=== PATIENT | female | born 1975 | race Caucasian/White ===

== ENCOUNTER 2016-07-27 10:05 | Inpatient (IN) | payer OTHER ==
[~2016-07-27] VITALS: Ht 160 cm; Wt 92.7 kg
[2016-07-27] MEDS ORDERED: CYCL5TAB PO (10:54)
[2016-07-27] MEDS ORDERED: NVLGI/PEN SQ (10:54)
[2016-07-27] MEDS ORDERED: DICY20TA10 PO (10:54)
[2016-07-27] MEDS ORDERED: METO5TAB25 PO (10:54)
[2016-07-27] MEDS ORDERED: DOCU100C31 PO (10:54)
[2016-07-27] MEDS ORDERED: POTA20TA16 PO (10:54)
[2016-07-27] MEDS ORDERED: PANT40TA2 PO (10:54)
[2016-07-27] MEDS ORDERED: PRENTAB26 PO (10:54)
[2016-07-27] MEDS ORDERED: VENL37.593 PO (10:54)
[2016-07-27] MEDS ORDERED: FLUT0.15 NAE (10:54)
[2016-07-27] MEDS ORDERED: ASPI81TA28 PO (10:54)
[2016-07-27] MEDS ORDERED: PREG1CAP28 PO (10:54)
[2016-07-27] MEDS ORDERED: POLY335019 PO (10:54)
[2016-07-27] MEDS ORDERED: AMIO200T4 PO (10:54)
[2016-07-27] MEDS ORDERED: TRAM-10 PO (10:54)
[2016-07-27] MEDS ORDERED: LPT/40 PO (10:54)
[2016-07-27] MEDS ORDERED: FURO80TA63 PO (10:54)
[2016-07-27] MEDS ORDERED: VENL150C PO (10:54)
[2016-07-27] MEDS ORDERED: HEPA1INJ22 SQ (10:54)
[2016-07-27 11:16] LABS: ARTERIAL BLD GAS O2 SATURATION 94.9 % (90-95); ARTERIAL BLOOD GAS BASE EXCESS 11.2 mEq/L (-9-1.8); ARTERIAL BLOOD GAS HCO3 36 mmol/L (19-24); ARTERIAL BLOOD GAS PO2 94 mm/Hg (80-95); ARTERIAL BLOOD GAS pH 7.48 (7.35-7.45)
[2016-07-27 11:17] LABS: ALLEN TEST POS (POS); O2 ADMINISTRATION 3.5 L
--- NOTE | 2016-07-27 11:18 | DIAGNOSTIC IMAGING REPORT ---
CHEST ONE VIEW PORTABLE HISTORY: Left-sided chest pain. COMPARISON: None. FINDINGS: There are low lung volumes. The heart is mildly enlarged. There are poststernotomy changes. No pneumothorax. There is perihilar interstitial and vascular thickening suggestive of mild congestive change. There are patchy densities the left lung base and a possible trace left pleural effusion. IMPRESSION: 1. Cardiomegaly with mild congestive change. 2. Patchy densities at the left lung base with a possible trace left pleural effusion. This could represent atelectasis or pneumonia. Follow-up is recommended to ensure resolution. Electronically signed by: Juan Lincoln M.D. 07/27/2016 11:16 AM Dictated Date/Time: 07/27/2016 11:15 AM
[2016-07-27 11:30] LABS: BASO % 0.2 %; BASO ABS # 0.03 K/uL (0-0.2); EOS % 3.9 %; HEMATOCRIT 25.4 % (37-47); IG% 2.2 %; LYMPH % 13.9 %; LYMPH ABS # 1.95 K/uL (1.2-3.4); MEAN CELL VOLUME 96.2 fL (80-100); MEAN CORPUSCULAR HEMOGLOBIN 31.1 pg (25-34); MEAN CORPUSCULAR HGB CONC 32.3 g/dl (32-36); MEAN PLATELET VOLUME 9.9 fL (7.4-10.4); MONO % 8.7 %; NEUT % 71.1 %; PLATELET COUNT 405 K/uL (130-400); RED BLOOD COUNT 2.64 M/uL (4.2-5.4); WHITE BLOOD COUNT 14.04 K/uL (4.8-10.8)
[2016-07-27 11:44] LABS: INR 1.1 (0.9-1.1); PARTIAL THROMBOPLASTIN RATIO 1.2; PROTHROMBIN TIME (PATIENT) 11.5 SECONDS (9.0-12.0)
[2016-07-27 11:49] LABS: BUN/CREATININE RATIO 27.8 (10-20); CALCIUM 8.8 mg/dl (8.5-10.1); CREATININE 3.3 mg/dl (0.60-1.20); POTASSIUM 3.5 mmol/L (3.5-5.1)
[2016-07-27 11:58] LABS: COMPLETE YES; STOMATOCYTE 1+
--- NOTE | 2016-07-27 13:30 | ECHOCARDIOGRAM REPORT ---
*NOTICE TO RECEIVING DEMOCRAT AGENCY This information is strictly Confidential and protected under [place] law. [place] law prohibits you from making any further disclosure of this information unless further disclosure is expressly permitted by the written consent of the person to whom it pertains or is authorized by law. A general authorization for the release of medical or other information is not sufficient for this purpose. Hospital accepts no responsibility if the information is made available to any other person, INCLUDING THE PATIENT. Interpretation Summary * Name: MONE MCKEON Study Date: 07/27/2016 11:26 AM BP: 128/66 mmHg * Patient Location: .EDB HR: 70 * : 1975 (M/d/yyyy) Gender: Female Height: 62 in * Age: 40 yrs Ethnicity: CA Weight: 207 lb * Ordering Physician: Terrance Gonzalez * Performed By: Galen Isidro RCS * * Reason For Study: Eval for Pericardial Effusion \T\ LV Function * BSA: 1.9 m2 * The study was technically difficult. * The study was technically limited. * -- Conclusions -- * Ejection Fraction = 45-50%. * Septal motion is consistent with post-operative state. * Trace posterior loculated pericardial effusion with fibrous strands. * There are no echocardiographic indications of cardiac tamponade. Procedure Details * A two-dimensional transthoracic echocardiogram was performed. * A two-dimensional transthoracic echocardiogram, with color flow Doppler was performed. * A two-dimensional transthoracic echocardiogram with M-mode and Doppler was performed. * There were technical limitations due to patient'spoor positioning * A contrast injection of Definity was performed to improve assessment of LV function. * Contrast was injected into an intravenous site in the left arm. * One vial of Definity ultrasound contrast was diluted in normal saline to a total volume of 10 ml. A total of '2' ml of solution was administered during imaging. * Lot # [id number] of Definity utilized for procedure. * Expiration date 1APR18. * The attending nurse who injected the contrast agent was Galen Avendano RN. Left Ventricle * There is no thrombus. * Ejection Fraction = 45-50%. * Septal motion is consistent with post-operative state. Right Ventricle * The right ventricle is not well visualized. * Grossly normal RV size in limited views. * The right ventricular systolic function is mild to moderately reduced. Atria * The left atrium is mildly dilated. * Right atrial size is normal. Mitral Valve * The mitral valve is not well visualized. * There is no mitral valve stenosis. * Significant mitral regurgitation is absent. Tricuspid Valve * The tricuspid valve is not well visualized. Aortic Valve * The aortic valve is not well visualized. Pulmonic Valve * The pulmonic valve is not well visualized. Great Vessels * The aortic root is normal size. Pericardium/Pleural * Trace posterior loculated pericardial effusion with fibrous strands. * There are no echocardiographic indications of cardiac tamponade. Left Ventricular Diastolic Function * Diastolic function was not assessed. MMode 2D Measurements and Calculations IVSd 1.1 cm IVSs 1.4 cm LVIDd 4.8 cm LVIDs 3.8 cm LVPWd 1.1 cm LVPWs 1.4 cm IVS/LVPW 1.0 FS 21.4 % EDV(Teich) 106.4 ml ESV(Teich) 60.2 ml EF(Teich) 43.4 % EDV(cubed) 109.1 ml ESV(cubed) 53.0 ml EF(cubed) 51.5 % % IVS thick 29.3 % % LVPW thick 31.6 % LV mass(C)d 189.3 grams LV mass(C)dI 97.6 grams/m\S\2 LV mass(C)s 194.6 grams LV mass(C)sI 100.3 grams/m\S\2 CO(Teich) 3.2 l/min CI(Teich) 1.6 l/min/m\S\2 SV(Teich) 46.2 ml SI(Teich) 23.8 ml/m\S\2 CO(cubed) 3.9 l/min CI(cubed) 2.0 l/min/m\S\2 SV(cubed) 56.1 ml SI(cubed) 28.9 ml/m\S\2 LVAd ap4 35.7 cm\S\2 LVLd ap4 8.5 cm EDV(MOD-sp4) 81.5 ml EDV(sp4-el) 82.3 ml LVAs ap4 24.2 cm\S\2 LVLs ap4 7.0 cm ESV(MOD-sp4) 35.5 ml ESV(sp4-el) 36.3 ml EF(MOD-sp4) 56.5 % EF(sp4-el) 55.9 % LVAd ap2 35.5 cm\S\2 LVLd ap2 8.5 cm EDV(MOD-sp2) 94.7 ml EDV(sp2-el) 95.4 ml LVAs ap2 24.1 cm\S\2 LVLs ap2 7.1 cm ESV(MOD-sp2) 86.6 ml ESV(sp2-el) 84.3 ml EF(MOD-sp2) 8.6 % EF(sp2-el) 11.6 % LVLd %diff 8.7 % EDV(MOD-bp) 91.8 ml LVLs %diff 14.2 % ESV(MOD-bp) 58.8 ml EF(MOD-bp) 36.0 % CO(MOD-sp4) 3.2 l/min CI(MOD-sp4) 1.6 l/min/m\S\2 SV(MOD-sp4) 46.1 ml SI(MOD-sp4) 23.7 ml/m\S\2 CO(MOD-sp2) 0.56 l/min CI(MOD-sp2) 0.29 l/min/m\S\2 SV(MOD-sp2) 8.1 ml SI(MOD-sp2) 4.2 ml/m\S\2 CO(MOD-bp) 2.3 l/min CI(MOD-bp) 1.2 l/min/m\S\2 SV(MOD-bp) 33.0 ml SI(MOD-bp) 17.0 ml/m\S\2 CO(sp4-el) 3.2 l/min CI(sp4-el) 1.6 l/min/m\S\2 SV(sp4-el) 46.0 ml SI(sp4-el) 23.7 ml/m\S\2 CO(sp2-el) 0.77 l/min CI(sp2-el) 0.39 l/min/m\S\2 SV(sp2-el) 11.1 ml SI(sp2-el) 5.7 ml/m\S\2 Doppler Measurements and Calculations TR max heather 240.3 cm/sec
[2016-07-27] MEDS ORDERED: NITROGLYCERIN 0.4 MG SL PER TAB CHARGE SL PRN (14:45)
[2016-07-27] MEDS ORDERED: ONDANSETRON INJ 2 MG/ML 2 ML VIAL IV PRN (14:45)
[2016-07-27] MEDS ORDERED: OMEP20CA9 PO (14:47)
[2016-07-27] MEDS ORDERED: FRRS300 PO (14:47)
[2016-07-27] MEDS ORDERED: INSDGIPEN SC (14:56)
[2016-07-27] MEDS ORDERED: CYCLOBENZAPRINE HCL 10 MG TAB PO PRN (15:00)
[2016-07-27] MEDS ORDERED: GLUCOSE 10 TABS/TUBE PO PRN (15:00)
[2016-07-27] MEDS ORDERED: GLUCOSE 40% GEL 15 GM TUBE PO PRN (15:00)
[2016-07-27] MEDS ORDERED: DEXTROSE 50% 50 ML SYR IV PRN (15:00)
[2016-07-27] MEDS ORDERED: GLUCAGON FOR INJ 1 MG VIAL SQ PRN (15:00)
--- NOTE | 2016-07-27 15:04 | DIAGNOSTIC IMAGING REPORT ---
BILATERAL LOWER EXTREMITY VENOUS DOPPLER HISTORY: Pain. Edema. eval for dv COMPARISON STUDY: None. FINDINGS: There is normal compressibility, flow, and augmentation within the bilateral lower extremity deep venous systems. Small focus of superficial thrombophlebitis left greater saphenous vein. IMPRESSION: 1. Study is negative for deep venous thrombosis. 2. Small focus of superficial thrombophlebitis left greater saphenous vein. Electronically signed by: Shamar Guardado M.D. 07/27/2016 3:02 PM Dictated Date/Time: 07/27/2016 3:01 PM
[2016-07-27] MEDS ORDERED: VANCOMYCIN CONSULT ACTIVE PRN (15:21)
--- NOTE | 2016-07-27 15:21 | History and Physical ---
History & Physical Date & Time of Service: July 27, 2016 at 14:57 Chief Complaint: Chest Pain Primary Care Physician: Monica Rascon PA-C History of Present Illness Source: patient, clinic records, hospital records, other ([facility]) Patient seen and examined. 40 year old female with complicated PMHx of CAD, DM1 , HTN, HLD, nocturnal hypoxia, CKD stage 3, and recent CABG x 4 on 07/16 presents to the ED from [facility] complaining of chest pain. Patient had a CABG x 4 on 07/16 at [facility] and was discharged last evening to [facility]. Hospital course had been complicated by DWAYNE. Patient reports that she has been having off and on left sided chest pain with radiation around the back to the left shoulder blade for several weeks. She states she had this pain prior to the CABG and has continued since. She reports it can last anywhere from 20 minutes to several hours and then resolves spontaneously. She rates the pain as a 7/10. She reports she had been having this pain while in [facility] but did not tell anyone. She had this pain again today while at [facility] and was referred to the ED for further evaluation. She denies fevers, chills, URI symptoms, SOB, palpitations, nausea, vomiting, diarrhea, dysuria, calf pain and edema. In the ED patient was hypoxic but otherwise VS were stable, a STAT Echo was completed, troponin was 0.6, WBC count was 14K, Hgb is 8.2. She is currently resting comfortably pain free. Differential diagnosis include PE d/t patient's DWAYNE on CKD a CTA could not be completed. Ddimer and doppler US were pending at time of admission. Case was discussed with [facility] by ED physician and per ED physician [facility] was not willing to accept the patient. She will be admitted for further workup and treatment. Past Medical/Surgical History Medical Problems: (1) Anemia Status: Chronic (2) CAD (coronary artery disease) Status: Chronic (3) CKD (chronic kidney disease), stage III Status: Chronic (4) HLD (hyperlipidemia) Status: Chronic (5) HTN (hypertension) Status: Chronic (6) IDDM (insulin dependent diabetes mellitus) Status: Chronic (7) Neuropathy Status: Chronic (8) Nocturnal hypoxia Status: Chronic Surgical Problems: (1) H/O eye surgery Status: Chronic (2) H/O: Status: Chronic (3) History of esophagogastroduodenoscopy (EGD) Status: Chronic (4) History of quadruple bypass Status: Resolved (5) Hx of tonsillectomy Status: Chronic Family History Diabetes mellitus FH: heart disease Hypertension Stroke Social History Smoking Status: Never Smoker Alcohol Use: none Housing status: lives with family Allergies Coded Allergies: No Known Allergies (Unverified , 07/27/16) Home Medications Scheduled Amiodarone Hcl (Cordarone), 200 MG PO BID Aspirin (Aspirin Ec), 162 MG PO DAILY Atorvastatin (Lipitor), 80 MG PO QPM Cyclobenzaprine Hcl (Flexeril), 5 MG PO BID Dicyclomine Hcl (Dicyclomine Hcl), 20 MG PO TID Docusate Sodium (Docusate Sodium), 100 MG PO BID Ferrous Sulfate (Ferrous Sulfate), 325 MG PO BID Fluticasone Propionate (Nasal) (Flonase Allergy Relief), 1 SPRAY PAVEL DAILY Furosemide (Lasix), 80 MG PO DAILY Heparin Sodium (Porcine) (Heparin Sodium), 5,000 UNIT SQ Q8 Insulin Aspart (Novolog Flexpen), 1 UNIT SQ ACHS Insulin Glargine (Lantus Solostar), 15 UNITS SC BID Metolazone (Zaroxolyn), 5 MG PO DAILY Multivit/Min/Iron/Fol Ac/Pren ( Vitamin), 1 TAB PO DAILY Omeprazole (Prilosec), 20 MG PO DAILY Polyethylene Glycol 3350 (Miralax), 17 GM PO DAILY Potassium Ext Rel (Klor-Con), 10 MEQ PO QAM Pregabalin (Lyrica), 150 MG PO BID Venlafaxine Hcl (Venlafaxine Extended Rel), 37.5 MG PO QPM Venlafaxine Hcl (Effexor Xr), 150 MG PO QPM Scheduled PRN Tramadol (Ultram), 50 MG PO Q4H PRN for Pain Review of Systems Constitutional: No chills, No fever Eyes: No worsening of vision ENT: No nasal symptoms Respiratory: No cough, No shortness of breath Cardiovascular: + chest pain, No edema, No palpitations Abdomen: No constipation, No diarrhea, No nausea, No pain, No vomiting Musculoskeletal: No calf pain, No swelling Genitourinary - Female: No dysuria Neurologic: No numbness/tingling, No vertigo Psychiatric: No anxiety Hematologic / Lymphatic: No abnormal bleeding/bruising, No clotting problems Integumentary: No itch, No rash Allergic / Immunologic: No environmental allergies Physical Exam Vital Signs Date Time Temp Pulse Resp B/P Pulse Ox O2 Delivery O2 Flow Rate FiO2 07/27/16 14:34 83 16 108/66 07/27/16 14:07 72 16 99/67 97 Nasal Cannula 4.0 07/27/16 13:12 67 16 123/88 97 Nasal Cannula 4.0 07/27/16 12:04 70 16 80/47 97 Nasal Cannula 4.0 07/27/16 10:17 Nasal Cannula 4.0 07/27/16 10:16 36.7 70 18 128/66 87 Room Air 2.0 General Appearance: + pertinent finding (WD/WN 40 year old female lying in bed in NAD ) Head: normocephalic, atraumatic Eyes: PERRL, EOMI, sclerae normal ENT: hearing grossly normal, pharynx normal Neck: supple, no JVD Respiratory/Chest: lungs clear, normal breath sounds, no respiratory distress, no accessory muscle use, + pertinent finding (chest tender to palpation, well healing sternal incision s/p CABG ) Cardiovascular: regular rate, rhythm, no edema, no gallop, no JVD, no murmur, normal peripheral pulses Abdomen/GI: normal bowel sounds, non tender, soft Back: normal inspection, no muscle spasm Extremities/Musculoskelatal: no calf tenderness, normal capillary refill, no pedal edema Neurologic/Psych: alert, oriented x 3, + pertinent finding (no focal deficits noted on gross exam ) Skin: normal color, warm/dry, no rash Lymphatic: no adenopathy Diagnostics Laboratory Results Results Past 24 Hours Test 07/27/16 00:00 07/27/16 11:15 07/27/16 14:37 Range/Units Arterial Blood pH 7.48 7.35-7.45 Arterial Blood Partial Pressure CO2 49 35-46 mmHg Arterial Blood Partial Pressure O2 94 80-95 mm/Hg Arterial Blood HCO3 36 19-24 mmol/L Arterial Blood Oxygen Saturation 94.9 90-95 % Arterial Blood Base Excess 11.2 -9-1.8 mEq/L Arterial Blood Gas Delivery 3.5 L Joesph Test POS POS White Blood Count 14.04 4.8-10.8 K/uL Red Blood Count 2.64 4.2-5.4 M/uL Hemoglobin 8.2 12.0-16.0 g/dL Hematocrit 25.4 37-47 % Mean Corpuscular Volume 96.2 80-100 fL Mean Corpuscular Hemoglobin 31.1 25-34 pg Mean Corpuscular Hemoglobin Concent 32.3 32-36 g/dl Platelet Count 405 130-400 K/uL Mean Platelet Volume 9.9 7.4-10.4 fL Neutrophils (%) (Auto) 71.1 % Lymphocytes (%) (Auto) 13.9 % Monocytes (%) (Auto) 8.7 % Eosinophils (%) (Auto) 3.9 % Basophils (%) (Auto) 0.2 % Neutrophils # (Auto) 9.98 1.4-6.5 K/uL Lymphocytes # (Auto) 1.95 1.2-3.4 K/uL Monocytes # (Auto) 1.22 0.11-0.59 K/uL Eosinophils # (Auto) 0.55 0-0.5 K/uL Basophils # (Auto) 0.03 0-0.2 K/uL RDW Standard Deviation 57.6 36.4-46.3 fL RDW Coefficient of Variation 16.8 11.5-14.5 % Immature Granulocyte % (Auto) 2.2 % Immature Granulocyte # (Auto) 0.31 0.00-0.02 K/uL Stomatocytes 1+ Erythrocyte Sedimentation Rate 51 0-21 mm/hr Prothrombin Time 11.5 9.0-12.0 SECONDS Prothromb Time International Ratio 1.1 0.9-1.1 Activated Partial Thromboplast Time 30.4 21.0-31.0 SECONDS Partial Thromboplastin Ratio 1.2 Sodium Level 133 136-145 mmol/L Potassium Level 3.5 3.5-5.1 mmol/L Chloride Level 88 98-107 mmol/L Carbon Dioxide Level 36 21-32 mmol/L Anion Gap 9.0 3-11 mmol/L Blood Urea Nitrogen 92 7-18 mg/dl Creatinine 3.30 0.60-1.20 mg/dl Est Creatinine Clear Calc Drug Dose 24.4 ml/min Estimated GFR () 19.1 Estimated GFR (Non- 16.5 BUN/Creatinine Ratio 27.8 10-20 Random Glucose 185 70-99 mg/dl Calcium Level 8.8 8.5-10.1 mg/dl Total Bilirubin 0.4 0.2-1 mg/dl Direct Bilirubin 0.1 0-0.2 mg/dl Aspartate Amino Transf (AST/SGOT) 15 15-37 U/L Alanine Aminotransferase (ALT/SGPT) 14 12-78 U/L Alkaline Phosphatase 276 45-117 U/L Total Creatine Kinase 48 26-192 U/L Creatine Kinase MB 0.5 0.5-3.6 ng/ml Creatine Kinase MB Ratio 1.0 0-3.0 Troponin I 0.604 0-0.045 ng/ml Pro-B-Type Natriuretic Peptide 7498 0-450 pg/ml Total Protein 7.2 6.4-8.2 gm/dl Albumin 3.1 3.4-5.0 gm/dl Diagnostic Radiology CXR Per radiologist read: IMPRESSION: 1. Cardiomegaly with mild congestive change. 2. Patchy densities at the left lung base with a possible trace left pleural effusion. This could represent atelectasis or pneumonia. Follow-up is recommended to ensure resolution. EKG NSR 70 BPM, Incomplete LBBB, QTc 464 Impression Assessment and Plan 40 year old female presents to the ED complaining of chest pain, she had a CABG on 07/16 reports this chest pain has been going on for the last month or so CHEST PAIN, ELEVATED TROPONIN, H/O CAD S/P RECENT CABG -Admit to tele -Troponin 0.6, STAT echo completed and without significant change from postop -serial Cameron, EKGs -Cardiology consult placed -Workup for PE and other noncardiac etiologies as outlined below -ED spoke with [facility] cardiology and they did not believe transfer was indicated at this time, if workup for noncardiac causes is negative patient may need to be transferred, defer to attending physician -Continue aspirin, statin, amiodarone HYPOXIA -? cause does have chronic nocturnal hypoxia -Differential diagnosis to include, PE, pneumonia, chronic hypoxia d/t cardiac disease, and other etiologies -supplemental oxygen as needed -VQ scan to r/o PE -empirically treat for pneumonia as outlined below ELEVATED DDIMER -can not have CTA d/t renal function -Check VQ scan, doppler US BLLE DWAYNE on CKD STAGE 3 -Crea 3.3, baseline near 1.5 -likely secondary to aggressive diuretic use, was evaluated by nephrology in [place] -hold diuretics -follow PRP POSSIBLE PNEUMONIA -CXR with possible pneumonia, WBC count 14K -D/T recent hospitalization will cover for health care associated pneumonia -Empirically treat with Vancomycin, Zosyn - pharmacy consulted for dosing -follow WBC count DM1 -Check A1c -SSI coverage -Lantus 10units BID while npo SYSTOLIC CHF -LVEF 40-45% -hold diuretics for DWAYNE -monitor volume status closely ANEMIA -Hgb 8.2, today -continue iron supplementation -Type and cross 2 units PRBC PERIPHERAL NEUROPATHY -continue Lyrica HLD -continue Statin GERD -continue PPI DEPRESSION -continue Effexor DVT PROPHYLAXIS: Sq heparin CODE STATUS: FULL CODE DISPO:In my clinical judgment this beneficiary meets acute admission criteria, established by [facility], that includes being hospitalized through two midnights. Patient seen in collaboration with Dr. Nails ADDENDUM: This is a 40 year old female with a recent CABG done on 07/16 presents to the ER after being discharged from [place] on July 26 for left sided chest pain. She states the pain is on the L chest wall, radiating to the L and around her back. No shortness of breath associated with chest pain echo performed, EF looks to be ~ 50% trend enzymes, though elevated due to recent CABG hold Lasix + Zaroxolyn due to acute kidney injury Monitor H/H cardiology consultation may need Imdur if this is cardiac related? possible transfer back to [place]? VTE Prophylaxis VTE Risk Assessment Done? Y/N: Yes Risk Level: Moderate
[2016-07-27] MEDS ORDERED: PIPERACILL/TAZOBAC CONSULT ACTIVE PRN (15:30)
[2016-07-27] MEDS ORDERED: PIPERACILLIN/TAZOBACTAM 4.5 GM/100ML D5W IV STA (16:14)
--- NOTE | 2016-07-27 16:20 | Pharmacy Progress Note ---
Pharmacy Antibiotic Consult Date of Service: July 27, 2016. Pharmacy Dosing Scope Pharmacy is consulted to initiate vancomycin IV dosing therapy, order appropriate labs and adjust drug dose/frequency. Subjective The patient is a 40 year old female admitted on 07/27/2016 with a hospital acquired pneumonia. She was previously at [facility] in [place] for a quadruple bypass. Her stay there was complicated by an DWAYNE. She was discharged to [facility] yesterday. She complained of a pain in upper chest/shoulder area that she has had for some time including her time at [place].Chest x-ray showed patchy densities at the left lung base with possible trace effusions. Objective Height (Feet): 5 Height (Inches): 3.00 Weight (Kilograms): 94.000 Lab Results (24hrs): Test 07/27/16 00:00 07/27/16 11:15 Arterial Blood pH 7.48 (7.35-7.45) Arterial Blood Partial Pressure CO2 49 mmHg (35-46) Arterial Blood Partial Pressure O2 94 mm/Hg (80-95) Arterial Blood HCO3 36 mmol/L (19-24) Arterial Blood Oxygen Saturation 94.9 % (90-95) Arterial Blood Base Excess 11.2 mEq/L (-9-1.8) Arterial Blood Gas Delivery 3.5 L Joesph Test POS (POS) White Blood Count 14.04 K/uL (4.8-10.8) Red Blood Count 2.64 M/uL (4.2-5.4) Hemoglobin 8.2 g/dL (12.0-16.0) Hematocrit 25.4 % (37-47) Mean Corpuscular Volume 96.2 fL (80-100) Mean Corpuscular Hemoglobin 31.1 pg (25-34) Mean Corpuscular Hemoglobin Concent 32.3 g/dl (32-36) Platelet Count 405 K/uL (130-400) Mean Platelet Volume 9.9 fL (7.4-10.4) Neutrophils (%) (Auto) 71.1 % Lymphocytes (%) (Auto) 13.9 % Monocytes (%) (Auto) 8.7 % Eosinophils (%) (Auto) 3.9 % Basophils (%) (Auto) 0.2 % Neutrophils # (Auto) 9.98 K/uL (1.4-6.5) Lymphocytes # (Auto) 1.95 K/uL (1.2-3.4) Monocytes # (Auto) 1.22 K/uL (0.11-0.59) Eosinophils # (Auto) 0.55 K/uL (0-0.5) Basophils # (Auto) 0.03 K/uL (0-0.2) RDW Standard Deviation 57.6 fL (36.4-46.3) RDW Coefficient of Variation 16.8 % (11.5-14.5) Immature Granulocyte % (Auto) 2.2 % Immature Granulocyte # (Auto) 0.31 K/uL (0.00-0.02) Stomatocytes 1+ Erythrocyte Sedimentation Rate 51 mm/hr (0-21) Prothrombin Time 11.5 SECONDS (9.0-12.0) Prothromb Time International Ratio 1.1 (0.9-1.1) Activated Partial Thromboplast Time 30.4 SECONDS (21.0-31.0) Partial Thromboplastin Ratio 1.2 D-Dimer 3800 ug/L FEU (0-500) Sodium Level 133 mmol/L (136-145) Potassium Level 3.5 mmol/L (3.5-5.1) Chloride Level 88 mmol/L (98-107) Carbon Dioxide Level 36 mmol/L (21-32) Anion Gap 9.0 mmol/L (3-11) Blood Urea Nitrogen 92 mg/dl (7-18) Creatinine 3.30 mg/dl (0.60-1.20) Est Creatinine Clear Calc Drug Dose 24.4 ml/min Estimated GFR () 19.1 Estimated GFR (Non- 16.5 BUN/Creatinine Ratio 27.8 (10-20) Random Glucose 185 mg/dl (70-99) Calcium Level 8.8 mg/dl (8.5-10.1) Total Bilirubin 0.4 mg/dl (0.2-1) Direct Bilirubin 0.1 mg/dl (0-0.2) Aspartate Amino Transf (AST/SGOT) 15 U/L (15-37) Alanine Aminotransferase (ALT/SGPT) 14 U/L (12-78) Alkaline Phosphatase 276 U/L (45-117) Total Creatine Kinase 48 U/L (26-192) Creatine Kinase MB 0.5 ng/ml (0.5-3.6) Creatine Kinase MB Ratio 1.0 (0-3.0) Troponin I 0.604 ng/ml (0-0.045) Pro-B-Type Natriuretic Peptide 7498 pg/ml (0-450) Total Protein 7.2 gm/dl (6.4-8.2) Albumin 3.1 gm/dl (3.4-5.0) Assessment & Plan Loading dose: vancomycin 1900 mg IV X 1 dose then: Random level in the morning of 07/27/2016 (patient currently has an acute kidney injury with baseline serum creatinine around 1.5 mg/dL) Goal peak level estimate: between 35 - 40 mcg/mL. Goal trough level estimate: between 15 - 20 mcg/mL (indication: pneumonia). Pharmacy will continue to follow and will adjust dose/frequency as necessary. Thank you
--- NOTE | 2016-07-27 16:41 | DIAGNOSTIC IMAGING REPORT ---
NUCLEAR MEDICINE VENTILATION AND PERFUSION STUDY CLINICAL HISTORY: Hypoxia, left-sided chest pain. Elevated d-dimer. COMPARISON STUDY: Chest x-ray dated 07/27/2016 FINDINGS: The patient was ventilated utilizing 30.8 mCi of technetium 99m DTPA aerosol. The patient was perfused utilizing 5.5 mCi of technetium 99m MAA. There is moderate central deposition of the aerosol, suggesting airway disease. There are no significant VQ mismatches. There is globally decreased activity within the left lung. This is likely secondary to attenuation from the patient's cardiomegaly. This examination is of low probability for acute pulmonary embolism. IMPRESSION: Low probability of acute pulmonary embolism. Electronically signed by: Ady Shirley M.D. 07/27/2016 4:40 PM Dictated Date/Time: 07/27/2016 4:37 PM
--- NOTE | 2016-07-27 17:45 | EMERGENCY ROOM VISIT NOTE ---
History Report prepared by Markus: Rosie Elias Under the Supervision of: Dr. Terrance Gonzalez M.D. First contact with patient: 10:16 Chief Complaint: CHEST PAIN Stated Complaint: CHEST PAIN History of Present Illness The patient is a 40 year old female who presents to the Emergency Room with complaints of constant left sided chest pain beginning 1 week ago. The patient states that she had quadruple bypass surgery on 07/16 after having symptoms of shortness of breath and tiredness. She reports that she had low hemoglobin and a catheterization that revealed heart disease.before having her surgery and has been staying at [facility] in [place] since then. She notes that she was transferred to [facility] last night. The patient reports that she did have chest pain while she was at [facility] and is unsure of whether or not she told the staff there. She complains of shortness of breath, worsened back throbbing that she has had for months, and trouble getting up when she is laying down. She denies any radiation of the pain, arm pain, and leg swelling. The patient reports that she is on 2L of oxygen at [facility] and notes that she has been on oxygen for a few months. The patient is not able to describe what the chest pain feels like and notes that her chest pain is completely separate from the back pain that she has been having for months. EMS reports that the patient's O2 saturation was 73 on room air. Source of History: patient Onset: 1 week ago Position: chest (left) Quality: other (unable to assess) Timing: constant Modifying Factors (Relieving): other (none) Associated Symptoms: + SOB, + back pain Note: She complains of trouble getting up when she is laying down. She denies any radiation of the pain, arm pain, and leg swelling. Review of Systems See HPI for pertinent positives & negatives. A total of 10 systems reviewed and were otherwise negative. Past Medical & Surgical Medical Problems: (1) Anemia (2) CAD (coronary artery disease) (3) Chest pain (4) CKD (chronic kidney disease), stage III (5) HLD (hyperlipidemia) (6) HTN (hypertension) (7) IDDM (insulin dependent diabetes mellitus) (8) Neuropathy (9) Nocturnal hypoxia Surgical Problems: (1) H/O eye surgery (2) H/O: (3) History of esophagogastroduodenoscopy (EGD) (4) History of quadruple bypass (5) Hx of tonsillectomy Family History No pertinent family history stated. Social History Marital Status: Housing Status: lives with significant other Occupation Status: disabled Current/Historical Medications Scheduled Amiodarone Hcl (Cordarone), 200 MG PO BID Aspirin (Aspirin Ec), 162 MG PO DAILY Atorvastatin (Lipitor), 80 MG PO QPM Cyclobenzaprine Hcl (Flexeril), 5 MG PO BID Dicyclomine Hcl (Dicyclomine Hcl), 20 MG PO TID Docusate Sodium (Docusate Sodium), 100 MG PO BID Ferrous Sulfate (Ferrous Sulfate), 325 MG PO BID Fluticasone Propionate (Nasal) (Flonase Allergy Relief), 1 SPRAY PAVEL DAILY Furosemide (Lasix), 80 MG PO DAILY Heparin Sodium (Porcine) (Heparin Sodium), 5,000 UNIT SQ Q8 Insulin Aspart (Novolog Flexpen), 1 UNIT SQ ACHS Insulin Glargine (Lantus Solostar), 15 UNITS SC BID Metolazone (Zaroxolyn), 5 MG PO DAILY Multivit/Min/Iron/Fol Ac/Pren ( Vitamin), 1 TAB PO DAILY Omeprazole (Prilosec), 20 MG PO DAILY Polyethylene Glycol 3350 (Miralax), 17 GM PO DAILY Potassium Ext Rel (Klor-Con), 10 MEQ PO QAM Pregabalin (Lyrica), 150 MG PO BID Venlafaxine Hcl (Venlafaxine Extended Rel), 37.5 MG PO QPM Venlafaxine Hcl (Effexor Xr), 150 MG PO QPM Scheduled PRN Tramadol (Ultram), 50 MG PO Q4H PRN for Pain Allergies Coded Allergies: No Known Allergies (Unverified , 07/27/16) Physical Exam Vital Signs Date Time Temp Pulse Resp B/P Pulse Ox O2 Delivery O2 Flow Rate FiO2 07/27/16 17:02 67 18 121/89 07/27/16 14:34 83 16 108/66 07/27/16 14:07 72 16 99/67 97 Nasal Cannula 4.0 07/27/16 13:12 67 16 123/88 97 Nasal Cannula 4.0 07/27/16 12:04 70 16 80/47 97 Nasal Cannula 4.0 07/27/16 10:17 Nasal Cannula 4.0 07/27/16 10:16 36.7 70 18 128/66 87 Room Air 2.0 Physical Exam Constitutional: Vital signs reviewed. O2 saturations are in the 70s on room air. Eyes: Pupils are equal round reactive to light. Conjunctiva are noninjected. ENT: Pharynx is clear without erythema or exudate. Mucous membranes are moist. Neck supple without meningeal signs. Respiratory: Clear to auscultation bilaterally. Breath sounds are equal bilaterally. Cardiovascular: Regular rate and rhythm. No rubs or gallops. GI: Soft, nondistended and nontender. Bowel sounds are present. Musculoskeletal: No peripheral edema. No lower extremity tenderness. Mid- sternotomy scar with mild erythema, no discharge. Integumentary: No cyanosis. Wound patch over the left lower leg without any surrounding cellulitis. Neurological: The patient is awake and alert. No focal deficits. Psychiatric: Normal affect. Medical Decision & Procedures ER Provider Diagnostic Interpretation: X-ray results as stated below per interpretation by me and the radiologist: CHEST ONE VIEW PORTABLE FINDINGS: There are low lung volumes. The heart is mildly enlarged. There are poststernotomy changes. No pneumothorax. There is perihilar interstitial and vascular thickening suggestive of mild congestive change. There are patchy densities the left lung base and a possible trace left pleural effusion. IMPRESSION: 1. Cardiomegaly with mild congestive change. 2. Patchy densities at the left lung base with a possible trace left pleural effusion. This could represent atelectasis or pneumonia. Follow-up is recommended to ensure resolution. Electronically signed by: Juan Lincoln M.D. 07/27/2016 11:16 AM Dictated Date/Time: 07/27/2016 11:15 AM BILATERAL LOWER EXTREMITY VENOUS DOPPLER HISTORY: Pain. Edema. eval for dv COMPARISON STUDY: None. FINDINGS: There is normal compressibility, flow, and augmentation within the bilateral lower extremity deep venous systems. Small focus of superficial thrombophlebitis left greater saphenous vein. IMPRESSION: 1. Study is negative for deep venous thrombosis. 2. Small focus of superficial thrombophlebitis left greater saphenous vein. Electronically signed by: Shamar Guardado M.D. 07/27/2016 3:02 PM Laboratory Results 07/27/16 11:15 Red Blood Count 2.64, Mean Corpuscular Volume 96.2, Mean Corpuscular Hemoglobin 31.1, Mean Corpuscular Hemoglobin Concent 32.3, Mean Platelet Volume 9.9, Neutrophils (%) (Auto) 71.1, Lymphocytes (%) (Auto) 13.9, Monocytes (%) (Auto) 8.7, Eosinophils (%) (Auto) 3.9, Basophils (%) (Auto) 0.2, Neutrophils # (Auto) 9.98, Lymphocytes # (Auto) 1.95, Monocytes # (Auto) 1.22, Eosinophils # (Auto) 0.55, Basophils # (Auto) 0.03 07/27/16 11:15 Test 07/27/16 00:00 07/27/16 11:15 07/27/16 17:15 07/27/16 17:20 Arterial Blood pH 7.48 (7.35-7.45) Arterial Blood Partial Pressure CO2 49 mmHg (35-46) Arterial Blood Partial Pressure O2 94 mm/Hg (80-95) Arterial Blood HCO3 36 mmol/L (19-24) Arterial Blood Oxygen Saturation 94.9 % (90-95) Arterial Blood Base Excess 11.2 mEq/L (-9-1.8) Arterial Blood Gas Delivery 3.5 L Joesph Test POS (POS) White Blood Count 14.04 K/uL (4.8-10.8) Red Blood Count 2.64 M/uL (4.2-5.4) Hemoglobin 8.2 g/dL (12.0-16.0) Hematocrit 25.4 % (37-47) Mean Corpuscular Volume 96.2 fL (80-100) Mean Corpuscular Hemoglobin 31.1 pg (25-34) Mean Corpuscular Hemoglobin Concent 32.3 g/dl (32-36) Platelet Count 405 K/uL (130-400) Mean Platelet Volume 9.9 fL (7.4-10.4) Neutrophils (%) (Auto) 71.1 % Lymphocytes (%) (Auto) 13.9 % Monocytes (%) (Auto) 8.7 % Eosinophils (%) (Auto) 3.9 % Basophils (%) (Auto) 0.2 % Neutrophils # (Auto) 9.98 K/uL (1.4-6.5) Lymphocytes # (Auto) 1.95 K/uL (1.2-3.4) Monocytes # (Auto) 1.22 K/uL (0.11-0.59) Eosinophils # (Auto) 0.55 K/uL (0-0.5) Basophils # (Auto) 0.03 K/uL (0-0.2) RDW Standard Deviation 57.6 fL (36.4-46.3) RDW Coefficient of Variation 16.8 % (11.5-14.5) Immature Granulocyte % (Auto) 2.2 % Immature Granulocyte # (Auto) 0.31 K/uL (0.00-0.02) Stomatocytes 1+ Erythrocyte Sedimentation Rate 51 mm/hr (0-21) Prothrombin Time 11.5 SECONDS (9.0-12.0) Prothromb Time International Ratio 1.1 (0.9-1.1) Activated Partial Thromboplast Time 30.4 SECONDS (21.0-31.0) Partial Thromboplastin Ratio 1.2 D-Dimer 3800 ug/L FEU (0-500) Anion Gap 9.0 mmol/L (3-11) Est Creatinine Clear Calc Drug Dose 24.4 ml/min Estimated GFR () 19.1 Estimated GFR (Non- 16.5 BUN/Creatinine Ratio 27.8 (10-20) Calcium Level 8.8 mg/dl (8.5-10.1) Total Bilirubin 0.4 mg/dl (0.2-1) Direct Bilirubin 0.1 mg/dl (0-0.2) Aspartate Amino Transf (AST/SGOT) 15 U/L (15-37) Alanine Aminotransferase (ALT/SGPT) 14 U/L (12-78) Alkaline Phosphatase 276 U/L (45-117) Pro-B-Type Natriuretic Peptide 7498 pg/ml (0-450) Total Protein 7.2 gm/dl (6.4-8.2) Albumin 3.1 gm/dl (3.4-5.0) Creatine Kinase MB Ratio (0-3.0) Laboratory results as reviewed by me. ECG Indication: chest pain Rate (beats per minute): 70 Rhythm: normal sinus Findings: T-wave inversion (1 and AVL), prolonged QT, other ([place] depression in leads 1 and 2, no ST elevation) ED Course 1018: The patient was evaluated in room B2. A complete history and physical exam was performed. 1053: We got records from the [facility] and the patients creatinine on 07/26 was 3.5 and she had a hemoglobin of 8.1. 1146: I spoke to Dr. Bruno of cardiology and he agrees with the echocardiogram. 1149: I reevaluated the patient and she has no chest pain currently. The echocardiogram was performed and Dr. Bruno will read it. They noted no significant pericardial effusion. 1229: I reevaluated the patient and we discussed her test results. Her vitals are stable and she has no current complaints. 1318: I spoke to Dr. Bruno. He note no significant pericardial effusion, RV was poorly visualized but somewhat hypokinetic. 1322: I spoke with Jessica Arzate PA-C of [facility]. We discussed the patient and her results. The patient will be further evaluated by Jessica Arzate. 1408: I spoke to Jessica Arzate PA-C and and her attending feels that the patient should be transferred to [facility]. 1422: I spoke to Dr. Machuca of cardiology and he didn't see any reason for transfer. He requested I call the hospitalist back for admission. 1428: I spoke to Jessica Arzate PA-C and she will be evaluating the patient for further management. 1440: I reevaluated the patient and updated her. She is going to ultrasound. Medical Decision This is a 40-year-old female presents with chest pain and shortness of breath. Differential diagnosis includes Kim's syndrome, pericarditis, pericardial effusion, pleural effusion, pneumonia, pulmonary embolism. I did perform a limited focused review of portions of the patient's old chart on the electronic medical record. The patient has had no prior visits. I did evaluate the patient as noted above. IV access was established. The patient was placed on a continuous space sciences director. The patient was given supplemental oxygen because of her hypoxemia. I did order and personally review the patient's 12-lead EKG and chest x-ray as described above. The 12-lead EKG did demonstrate [place] depression as described above. Chest x-ray shows a pleural effusion with possible infiltrate versus atelectasis. I did order and review the patient's blood work as noted in the electronic medical record. The patient has anemia and a creatinine of 3 which is also not significantly changed from yesterday when she had blood drawn. I did order Doppler ultrasounds of the lower extremities. I did review the images myself as well as the radiology report as described above. There is no evidence of DVT. I did discuss case with the hospitalist for further evaluation in the hospital given her chest pain and hypoxemia. She currently has no chest discomfort. I did talk to Jessica Arzate who spoke to her attending and requested I transfer the patient. I did talk to Dr. Machuca of cardiology at [facility] who did not feel the patient required transfer and recommended local hospitalization. I did discuss this again with Emily Carito who hospitalized the patient. Consults Time Called: 1143 Consulting Physician: Dr. Bruno - Cardiology Returned Call: [address] Bruno of cardiology and he agrees with the echocardiogram. Additional Consults: Time Called: 1317 Consulted Physician: Dr. Bruno - Cardiology Returned Call: [phone] Additional Comments: I spoke to Dr. Bruno. He note no significant pericardial effusion, RV was poorly visualized but somewhat hypokinetic. Time Called: 1330 Consulted Physician: Jessica Arzate PA-C Returned Call: 1322 Additional Comments: I spoke with Jessica Arzate PA-C of [facility]. We discussed the patient and her results. The patient will be further evaluated by Jessica Arzate. Impression Primary Impression: Acute chest pain Additional Impressions: Hypoxia Abnormal EKG Anemia Elevated serum creatinine Scribe Attestation The scribe's documentation has been prepared under my direct and personally reviewed by me in its entirety. I confirm that the note above accurately reflects all work, treatment, procedures, and medical decision making performed by me. Departure Information Dispostion Being Evaluated By Hospitalist Referrals No Doctor, Assigned (PCP) Patient Instructions [facility] Problem Qualifiers Additional Impressions: Anemia Anemia type: unspecified type Qualified Codes: D64.9 - Anemia, unspecified
[2016-07-27 18:21] VITALS: BP 112/64; PULSE 66; TEMP 36.6; O2SAT 98; Ht 160 cm; Wt 92.7 kg
[2016-07-27] MEDS ORDERED: VANCOMYCIN INJ 1,900 MG in SODIUM CHLORIDE 0.9% 500ML 500 ML IV ONE (19:00)
[2016-07-27] MEDS ORDERED: PIPERACILL/TAZOBAC IV 4.5 GM in DEXTROSE 5% 100ML 100 ML IV SCH (19:00)
[2016-07-27] MEDS: AMIODARONE 200 MG TAB PO SCH (19:56)
[2016-07-27] MEDS: FERROUS SULFATE 325 MG TAB PO SCH (19:57)
[2016-07-27] MEDS: ATORVASTATIN 40 MG TAB PO SCH (19:57)
[2016-07-27] MEDS: DICYCLOMINE HCL 20 MG TAB PO SCH (19:57)
[2016-07-27] MEDS: VENLAFAXINE HCL XR 150 MG CAPXR PO SCH (19:58)
[2016-07-27] MEDS: DOCUSATE SODIUM 100 MG CAP PO SCH (19:58)
[2016-07-27] MEDS: VENLAFAXINE HCL XR 37.5 MG CAPXR PO SCH (19:58)
[2016-07-27 20:00] VITALS: O2SAT 94
[2016-07-27] MEDS: PREGABALIN 75 MG CAP PO SCH (20:00)
[2016-07-27] MEDS: INSULIN ASPART 100 UNITS/ML 3 ML PEN SC SCH (20:35)
[2016-07-27] MEDS ORDERED: INSULIN GLARGINE SOLOSTAR 100 UNITS/ML 3 ML PEN SC SCH (21:00)
[2016-07-27] MEDS: HEPARIN SOD 5000 UNIT/0.5 ML CARP SQ SCH (21:53)
[2016-07-27] MEDS ORDERED: NURSING VERBAL MED ORDER ONE (22:30)
[2016-07-27] MEDS: ACETAMINOPHEN 325 MG TAB PO PRN (23:17)
[2016-07-27 23:39] VITALS: BP 111/62; PULSE 70; TEMP 36.5; O2SAT 92
[2016-07-28 00:04] LABS: CKMB/CK RATIO 1.9 (0-3.0)
--- NOTE | 2016-07-28 02:06 | CARDIOLOGY CONSULTATION ---
DATE OF CONSULTATION: 07/27/2016 REASON FOR CONSULTATION: Chest pain. HISTORY OF PRESENT ILLNESS: Ms. Acuña is a complex 40-year-old female with a recent history significant for coronary artery bypass grafting x4 on 07/16/2016 at [facility]. The patient had a cardiac catheterization performed in April which demonstrated multivessel disease. She is known to have mild to moderately reduced LV systolic function. She was discharged from [facility] yesterday to [facility]. Earlier today, the patient complained of substernal chest pain radiating to her back. She has difficulty describing the pain at this time. She notes it was sharp and 7/10 at its worst. She is currently pain free. A stat echocardiogram was performed at the bedside. No significant pericardial effusion was noted. Her ejection fraction has improved mildly, currently 45-50%. No regional wall motion abnormalities appreciated. Her D-dimer and troponins were found to be elevated. A V/Q scan was performed and found to be negative for pulmonary embolus. Venous duplex was negative for deep venous thrombosis. The patient currently resting comfortably. Denies chest pain or shortness of breath at rest. She is on 4 liters nasal cannula oxygen. Chest x-ray demonstrates possible left lower lobe atelectasis versus infiltrate. Her white blood cell count is mildly elevated as well. Denies orthopnea, PND, or lower extremity edema. Offers no other complaints at this time. REVIEW OF SYSTEMS: The pertinent positives noted above, a comprehensive 10-system review is otherwise negative. PAST MEDICAL HISTORY: 1. Chronic multivessel coronary disease, status post recent bypass surgery. 2. Diabetes type 1. 3. Chronic anemia. 4. Chronic kidney disease stage III. 5. Dyslipidemia. 6. Hypertension. 7. Neuropathy. 8. Nocturnal hypoxemia. PAST SURGICAL HISTORY: 1. Coronary artery bypass grafting x4 on 07/16/2016. 2. Ocular surgery. 3. . 4. EGD. 5. Tonsillectomy. FAMILY HISTORY: Significant for coronary disease and diabetes type 2. SOCIAL HISTORY: Lifelong nonsmoker. She lives with her family. ALLERGIES: No known drug allergies. CURRENT MEDICATIONS: 1. Amiodarone 200 mg twice daily. 2. Aspirin 162 mg daily. 3. Lipitor 80 mg daily. 4. Flexeril 5 mg twice daily. 5. Dicyclomine 20 mg t.i.d. 6. Colace 100 mg b.i.d. 7. Ferrous sulfate 325 mg b.i.d. 8. Flonase daily. 9. Furosemide 80 mg daily. 10. Heparin subcu q. 8. 11. FlexPen NovoLog a.c. and at bedtime. 12. Lantus 15 units subcu b.i.d. 13. Zaroxolyn 5 mg daily. 14. Prilosec 20 mg daily. 15. Polyethylene glycol 17 grams daily. 16. Potassium chloride 10 mEq daily. 17. Lyrica 150 mg b.i.d. 18. Effexor 187.5 mg daily. 19. Tramadol 50 mg q. 4 as needed. ECG ON ADMISSION: Sinus rhythm, nonspecific ST-T wave abnormality. LABORATORY DATA: White blood cell count 14.04, hemoglobin is 8.2, MCV is 96.2, platelet count is 405. AB.48/49/94/36/95% on 3.5 liters nasal cannula. Sodium is 133, potassium is 3.5, chloride is 88, CO2 is 36, BUN is 92, creatinine is 3.30. Initial troponin 0.604. Her ProBNP is 7498. Her total CK is 48, her CK-MB is 0.5. Albumin is 3.1. INR is 1.1. D-dimer 3800. V/Q scan: Low probability for acute pulmonary embolism. Venous duplex: Negative for DVT. PHYSICAL EXAMINATION: VITAL SIGNS: Temperature is 36.7 degrees centigrade, pulse is 67 beats per minute and regular, respiratory rate is 18 breaths per minute, blood pressure 121/89, SaO2 is 97% on 4 liters. GENERAL: NAD, chronically ill, pale. HEENT: Mucous membranes dry. No scleral icterus. Conjunctivae pink. NECK: Supple. Her neck veins are flat. There is no JVD or HJR. No carotid bruit appreciated. HEART: Regular with a normal S1 and S2. No murmur, rub or gallop. Sternotomy incision is clean, dry, intact. No erythema or drainage. LUNGS: Demonstrate diminished breath sounds at the left base, otherwise no rhonchi or wheeze. ABDOMEN: Obese and nontender. No rebound or guarding. Normal bowel sounds. EXTREMITIES: Warm and dry without clubbing, cyanosis or edema. NEUROLOGIC: Demonstrates no focal motor deficit. FINAL IMPRESSION: 1. A complex 40-year-old female admitted with atypical chest discomfort. The patient is currently pain free. No significant troponin elevation or ECG changes. No significant pericardial effusion or RWMA per 2D echo. V/Q low probability for PE. Suspect musculoskeletal origin related to recent coronary artery bypass grafting surgery. 2. Abnormal chest x-ray suggesting possible left lower lobe pneumonia versus atelectasis. Infectious process must be considered in the setting of elevated ESR and white blood cell count. 3. Postoperative paroxysmal atrial fibrillation -- currently sinus rhythm, on amiodarone. 4. Ischemic cardiomyopathy, ejection fraction of 45-50%. 5. Chronic heart failure -- compensated. 6. Acute renal failure superimposed on chronic kidney disease secondary to dehydration / diuretic therapy 7. Diabetes type 1. PLAN AND RECOMMENDATIONS: Discontinue diuretic therapy at this time. Repeat basic metabolic panel in the a.m. The patient encouraged to hydrate. She is currently pain free. We will continue to follow closely during hospitalization. Other cardiovascular medications including aspirin, amiodarone, atorvastatin will be continued as previously ordered. Cardiac enzymes will be trended x3 sets. We will continue to monitor telemetry during hospitalization. The patient was recommended for transfer to [facility] as she was discharged from that facility less than 16 hours ago. Transfer was refused by the receiving hospital. I will continue to follow during hospitalization. Thank you for allowing me to take part in the care of your patient. FAISAL
[2016-07-28] MEDS: TRAMADOL HCL 50 MG TAB PO PRN ×2 (03:21→07:53)
[2016-07-28 03:26] VITALS: BP 126/81; PULSE 67; TEMP 36.5; O2SAT 94
[2016-07-28] MEDS: HEPARIN SOD 5000 UNIT/0.5 ML CARP SQ SCH ×3 (05:29→21:39)
[2016-07-28] MEDS ORDERED: PIPERACILL/TAZOBAC IV 4.5 GM in DEXTROSE 5% 100ML 100 ML IV SCH (06:00)
[2016-07-28] MEDS: INSULIN ASPART 100 UNITS/ML 3 ML PEN SC SCH ×4 (07:00→21:00)
[2016-07-28 07:33] LABS: HEMATOCRIT 25.6 % (37-47); MEAN CELL VOLUME 95.9 fL (80-100); MEAN CORPUSCULAR HGB CONC 31.3 g/dl (32-36); MEAN PLATELET VOLUME 9.4 fL (7.4-10.4); PLATELET COUNT 404 K/uL (130-400); RED BLOOD COUNT 2.67 M/uL (4.2-5.4); WHITE BLOOD COUNT 12.33 K/uL (4.8-10.8)
--- NOTE | 2016-07-28 07:42 | Clinical Documentation Query ---
LAUREL Valadez : CLINICAL DOCUMENTATION QUERY Patient is a 40 year old female admitted for evaluation and treatment of chest pain s/p CABG. Documentation has included "possible pneumonia". As this is in the setting of recent hospitalization including surgical intervention, as appropriate, consider documentation as suggested below as this would represent a complication of care and must be explicitly documented accordingly by the provider. In your clinical opinion is this patient being managed for: ( X ) (Possible/suspected) Postoperative pneumonia, a complication of care ( ) Other explanation of clinical findings (Please Explain) ( ) Unable to determine (Please Define) ( ) Need to Discuss ( ) Not Agree The medical record reflects the following clinical findings, treatment, and risk factors. Clinical Indicators: Recent hospitalization for CABG, now with possible postoperative pneumonia Treatment: CXR, labs, IV Vancomycin, Zosyn Risk Factors: Recent surgery, hypoventilation associated with pain related to chest wall mechanics of breathing, lack of activity, obesity Please clarify and document your clinical opinion in the progress notes and discharge summary. Terms such as "probable", "suspected", "likely", "questionable", "possible", or "still to be ruled out" are acceptable. IF IN AGREEMENT, YOU MUST DOCUMENT ABOVE DIAGNOSTIC STATEMENT IN DAILY PROGRESS NOTES AND DISCHARGE SUMMARY. This document is not part of the patient's record. Thank You, Brian Brand RN [phone]
[2016-07-28] MEDS: PANTOprazole SOD 40 MG TAB PO SCH (07:52)
[2016-07-28] MEDS: FERROUS SULFATE 325 MG TAB PO SCH ×2 (07:53→21:41)
[2016-07-28] MEDS: DICYCLOMINE HCL 20 MG TAB PO SCH ×3 (07:53→21:41)
[2016-07-28] MEDS: ASPIRIN 81 MG ECTAB PO SCH (07:54)
[2016-07-28] MEDS: POTASSIUM CHLORIDE 20 MEQ TABCR PO SCH (07:54)
[2016-07-28] MEDS: PRENATAL VITAMIN TAB PO SCH (07:54)
[2016-07-28] MEDS: AMIODARONE 200 MG TAB PO SCH ×2 (07:54→21:41)
[2016-07-28] MEDS: DOCUSATE SODIUM 100 MG CAP PO SCH ×2 (07:55→21:41)
[2016-07-28] MEDS: FLUTICASONE PROPIONATE NA SPR 16 GM BTL NAE SCH (07:55)
[2016-07-28] MEDS: POLYETHYLENE (MIRALAX) 17 GM PACK PO SCH (07:55)
[2016-07-28] MEDS: PREGABALIN 75 MG CAP PO SCH ×2 (08:00→21:40)
[2016-07-28 08:02] LABS: BUN/CREATININE RATIO 28.2 (10-20); CALCIUM 9.1 mg/dl (8.5-10.1); CREATININE 3.1 mg/dl (0.60-1.20); MAGNESIUM 2.5 mg/dl (1.8-2.4); POTASSIUM 3.2 mmol/L (3.5-5.1)
[2016-07-28 08:07] LABS: ESTIMATED AVERAGE GLUCOSE 120 mg/dl; HA1C FLAG Normal (Normal)
[2016-07-28 08:08] VITALS: BP 121/65; PULSE 69; TEMP 36.5; O2SAT 96
[2016-07-28] MEDS ORDERED: SODIUM CHLORIDE 0.9% 1000ML 1,000 ML IV SCH (09:00)
[2016-07-28] MEDS ORDERED: POTASSIUM CHLR 10 MEQ / WTR 10 MEQ in PREMIXED WATER 100 ML IV SCH (09:30)
[2016-07-28] MEDS: INSULIN GLARGINE SOLOSTAR 100 UNITS/ML 3 ML PEN SC SCH (09:52)
[2016-07-28] MEDS ORDERED: POTASSIUM CHLORIDE 10 MEQ TABCR PO ONE (10:00)
--- NOTE | 2016-07-28 10:28 | Progress Note ---
Subjective Date of Service: July 28, 2016. Subjective Pt evaluation today including: conversation w/ patient, physical exam, lab review, review of studies, review of inpatient medication list Saw/examined the patient in room 208 She is more awake today; yesterday she was lethargic and tired States that the pain in the left chest persisting today - radiating to the left back. Worse with palpation No nausea/vomiting; no fevers/chills Problem List Medical Problems: (1) Abnormal EKG Status: Acute (2) Acute chest pain Status: Acute (3) Anemia Status: Chronic (4) Elevated serum creatinine Status: Acute (5) Hypoxia Status: Acute Review of Systems Constitutional: + fatigue, + weakness, No chills, No fever Respiratory: No cough, No dyspnea at rest, No dyspnea on exertion, No hemoptysis, No shortness of breath, No sputum, No wheezing Cardiac: + chest pain, No edema, No palpitations Abdomen: No diarrhea, No nausea, No pain, No vomiting Musculoskeletal: + joint pain (R ankle) Heme: No abnormal bleeding/bruising Medications Current Inpatient Medications Medications (Trade) Dose Ordered Sig/Stewart Route Start Time Stop Time Status Last Admin Dose Admin Heparin Sodium (Porcine) (Heparin Sq 5000 Unit/0.5ml) 5,000 unit Q8 SQ 07/27/16 22:00 08/26/16 21:59 07/28/16 05:29 5,000 UNIT Acetaminophen (Tylenol Tab) 650 mg Q4H PRN PO 07/27/16 14:45 08/26/16 14:44 07/27/16 23:17 650 MG Ondansetron HCl (Zofran Inj) 4 mg Q6H PRN IV 07/27/16 14:45 08/26/16 14:44 Nitroglycerin (Nitrostat Tab) 0.4 mg UD PRN SL 07/27/16 14:45 08/26/16 14:44 Vancomycin HCl (Consult) 1 ea UD PRN N/A 07/27/16 15:21 08/26/16 15:20 Amiodarone HCl (Cordarone Tab) 200 mg BID PO 07/27/16 21:00 08/26/16 20:59 07/28/16 07:54 200 MG Aspirin (Ecotrin Tab) 162 mg DAILY PO 07/28/16 09:00 08/27/16 08:59 5/10/17 07:54 162 MG Atorvastatin Calcium (Lipitor Tab) 80 mg QPM PO 07/27/16 21:00 08/26/16 20:59 07/27/16 19:57 80 MG Cyclobenzaprine HCl (Flexeril Tab) 5 mg BID PRN PO 07/27/16 15:00 08/26/16 14:59 Dicyclomine HCl (Bentyl Tab) 20 mg TID PO 07/27/16 21:00 08/26/16 20:59 07/28/16 07:53 20 MG Docusate Sodium (coLACE CAP) 100 mg BID PO 07/27/16 21:00 08/26/16 20:59 07/27/16 19:58 100 MG Ferrous Sulfate (Feosol Tab) 325 mg BID PO 07/27/16 21:00 08/26/16 20:59 07/28/16 07:53 325 MG Fluticasone Propionate (Flonase Nasal [place]) 1 sprays DAILY PAVEL 07/28/16 09:00 08/27/16 08:59 07/28/16 07:55 1 SPRAYS Prenat Multivit/ [place]/Iron/Folic Ac ( Vitamin Tab) 1 tab DAILY PO 07/28/16 09:00 08/27/16 08:59 07/28/16 07:54 1 TAB Pregabalin (Lyrica Cap) 150 mg BID PO 07/27/16 21:00 08/26/16 20:59 07/28/16 08:00 150 MG Tramadol HCl (Ultram Tab) 50 mg Q4H PRN PO 07/27/16 15:00 08/26/16 14:59 07/28/16 07:53 50 MG Venlafaxine HCl (effeXOR EXTENDED REL CAP) 150 mg QPM PO 07/27/16 21:00 08/26/16 20:59 07/27/16 19:58 150 MG Venlafaxine HCl (effeXOR EXTENDED REL CAP) 37.5 mg QPM PO 07/27/16 21:00 08/26/16 20:59 07/27/16 19:58 37.5 MG Pantoprazole Sodium (Protonix Tab) 40 mg DAILY PO 07/28/16 09:00 08/27/16 08:59 07/28/16 07:52 40 MG Polyethylene (Miralax Powder Packet) 17 gm DAILY PO 07/28/16 09:00 08/27/16 08:59 Potassium Chloride (Klor-Con Tab) 20 meq QAM PO 07/28/16 09:00 08/27/16 08:59 07/28/16 07:54 20 MEQ Insulin Aspart (novoLOG ASPART) SLIDING SCALE If C... ACHS SC 07/27/16 17:00 08/26/16 16:59 Glucose (Glucose 40% Gel) 15-30 GRAMS 15 GRAMS... UD PRN PO 07/27/16 15:00 08/26/16 14:59 Glucose (Glucose Chew Tab) 4-8 Tablets 4 Tabl... UD PRN PO 07/27/16 15:00 08/26/16 14:59 Dextrose (Dextrose 50% 50ML Syringe) 25-50ML OF 50% DW IV FOR... UD PRN IV 07/27/16 15:00 08/26/16 14:59 Glucagon (Glucagon Inj) 1 mg UD PRN SQ 07/27/16 15:00 08/26/16 14:59 Piperacillin Sod/ Tazobactam Sod (Consult) 1 ea UD PRN N/A 07/27/16 15:30 08/26/16 15:29 Insulin Glargine 15 unit 15 unit DAILY SC 07/28/16 09:00 08/27/16 08:59 07/28/16 09:52 15 UNIT Sodium Chloride 1,000 ml @ 80 mls/hr [id number] IV 07/28/16 09:00 07/28/16 21:29 07/28/16 09:42 80 MLS/HR Piperacillin Sod/ Tazobactam Sod/ Dextrose (Zosyn Iv/D5 100ml) 115 ml @ 28.75 mls/ hr Q8 IV 07/28/16 14:00 08/04/16 13:59 Potassium Chloride (Klor-Con M10) 40 meq NOW ONCE PO 07/28/16 10:00 07/28/16 10:01 07/28/16 09:54 40 MEQ Objective Vital Signs Date Time Temp Pulse Resp B/P Pulse Ox O2 Delivery O2 Flow Rate FiO2 07/28/16 08:08 36.5 69 20 121/65 96 Nasal Cannula 3.0 07/28/16 08:00 Nasal Cannula 3.0 07/28/16 04:00 Nasal Cannula 3.0 07/28/16 03:26 36.5 67 17 126/81 94 Nasal Cannula 3.0 07/28/16 00:00 Nasal Cannula 3.0 07/27/16 23:39 36.5 70 16 111/62 92 Nasal Cannula 3.0 07/27/16 20:00 94 Nasal Cannula 3.0 07/27/16 18:21 36.6 66 16 112/64 98 Nasal Cannula 4.0 07/27/16 17:50 36.7 67 18 121/89 97 07/27/16 17:02 67 18 121/89 07/27/16 14:34 83 16 108/66 07/27/16 14:07 72 16 99/67 97 Nasal Cannula 4.0 07/27/16 13:12 67 16 123/88 97 Nasal Cannula 4.0 07/27/16 12:04 70 16 80/47 97 Nasal Cannula 4.0 07/27/16 10:17 Nasal Cannula 4.0 07/27/16 10:16 36.7 70 18 128/66 87 Room Air 2.0 Physical Exam General Appearance: + mild distress (secondary to pain) Eyes: + pertinent finding (dilated L eye) ENT: hearing grossly normal Respiratory/Chest: lungs clear, normal breath sounds, no respiratory distress, no accessory muscle use, + pertinent finding (+tenderness to palpation at L chest wall) Cardiovascular: regular rate, rhythm, no edema, no gallop, no JVD, no murmur Abdomen: normal bowel sounds, non tender, soft Extremities: no pedal edema, no calf tenderness, + pertinent finding (R ankle in boot) Neurologic/Psychiatric: no motor/sensory deficits, alert, normal mood/affect Skin: normal color Lymphatic: no adenopathy Laboratory Results Last 24 Hours Test 07/27/16 11:15 07/27/16 17:20 07/27/16 18:27 07/27/16 20:25 White Blood Count 14.04 K/uL Red Blood Count 2.64 M/uL Hemoglobin 8.2 g/dL Hematocrit 25.4 % Mean Corpuscular Volume 96.2 fL Mean Corpuscular Hemoglobin 31.1 pg Mean Corpuscular Hemoglobin Concent 32.3 g/dl Platelet Count 405 K/uL Mean Platelet Volume 9.9 fL Neutrophils (%) (Auto) 71.1 % Lymphocytes (%) (Auto) 13.9 % Monocytes (%) (Auto) 8.7 % Eosinophils (%) (Auto) 3.9 % Basophils (%) (Auto) 0.2 % Neutrophils # (Auto) 9.98 K/uL Lymphocytes # (Auto) 1.95 K/uL Monocytes # (Auto) 1.22 K/uL Eosinophils # (Auto) 0.55 K/uL Basophils # (Auto) 0.03 K/uL RDW Standard Deviation 57.6 fL RDW Coefficient of Variation 16.8 % Immature Granulocyte % (Auto) 2.2 % Immature Granulocyte # (Auto) 0.31 K/uL Stomatocytes 1+ Erythrocyte Sedimentation Rate 51 mm/hr Prothrombin Time 11.5 SECONDS Prothromb Time International Ratio 1.1 Activated Partial Thromboplast Time 30.4 SECONDS Partial Thromboplastin Ratio 1.2 D-Dimer 3800 ug/L FEU Sodium Level 133 mmol/L Potassium Level 3.5 mmol/L Chloride Level 88 mmol/L Carbon Dioxide Level 36 mmol/L Anion Gap 9.0 mmol/L Blood Urea Nitrogen 92 mg/dl Creatinine 3.30 mg/dl Est Creatinine Clear Calc Drug Dose 24.4 ml/min Estimated GFR () 19.1 Estimated GFR (Non- 16.5 BUN/Creatinine Ratio 27.8 Random Glucose 185 mg/dl Calcium Level 8.8 mg/dl Total Bilirubin 0.4 mg/dl Direct Bilirubin 0.1 mg/dl Aspartate Amino Transf (AST/SGOT) 15 U/L Alanine Aminotransferase (ALT/SGPT) 14 U/L Alkaline Phosphatase 276 U/L Total Creatine Kinase 48 U/L 46 U/L Creatine Kinase MB 0.5 ng/ml 0.9 ng/ml Creatine Kinase MB Ratio 1.0 2.0 Troponin I 0.604 ng/ml 0.573 ng/ml Pro-B-Type Natriuretic Peptide 7498 pg/ml Total Protein 7.2 gm/dl Albumin 3.1 gm/dl Bedside Glucose 127 mg/dl 135 mg/dl Test 07/27/16 23:15 07/28/16 06:28 07/28/16 07:17 Total Creatine Kinase 43 U/L Creatine Kinase MB 0.8 ng/ml Creatine Kinase MB Ratio 1.9 Troponin I 0.525 ng/ml Bedside Glucose 110 mg/dl White Blood Count 12.33 K/uL Red Blood Count 2.67 M/uL Hemoglobin 8.0 g/dL Hematocrit 25.6 % Mean Corpuscular Volume 95.9 fL Mean Corpuscular Hemoglobin 30.0 pg Mean Corpuscular Hemoglobin Concent 31.3 g/dl RDW Standard Deviation 58.0 fL RDW Coefficient of Variation 16.8 % Platelet Count 404 K/uL Mean Platelet Volume 9.4 fL Sodium Level 134 mmol/L Potassium Level 3.2 mmol/L Chloride Level 89 mmol/L Carbon Dioxide Level 39 mmol/L Anion Gap 6.0 mmol/L Blood Urea Nitrogen 88 mg/dl Creatinine 3.10 mg/dl Est Creatinine Clear Calc Drug Dose 25.7 ml/min Estimated GFR () 20.6 Estimated GFR (Non- 17.8 BUN/Creatinine Ratio 28.2 Random Glucose 96 mg/dl Estimated Average Glucose 120 mg/dl Hemoglobin A1c 5.8 % Calcium Level 9.1 mg/dl Magnesium Level 2.5 mg/dl Random Vancomycin Level 28.9 mcg/ml Assessment and Plan This is a 40 year old female with recent CABG x4 at [facility] on 07/16, post- operative atrial fibrillation, ischemic cardiomyopathy and reduced LVEF presents with L sided chest pain Chest Pain in the setting of recent CABG x4 bypass done at [place] on 07/16 recently discharged to [facility] on 07/[address] [facility] on 07/27 with chest pain attempted transfer back to tertiary care center - refused by physician this pain seems more like a chest wall tenderness cardiac enzymes are elevated, though expectedly so, due to recent surgery enzymes are trending down echo performed and LVEF improved to around 45-50% will continue aspirin & statin at this time any other input from cardiology appreciated Possible Post-operative Pneumonia CXR - L lung base opacity WBC elevated ~ 14k on admission, down to 12k started on Zosyn + Vanco - due to recent admission MRSA swab negative - stopped Vanco continue Zosyn for now Hypoxia hypoxia on admission; possibly secondary to pneumonia? V/Q scan - low probability for acute PE has been requiring 2L of O2 at [facility] currently back to 2L hold diuretics Ischemic Cardiomyopathy Systolic CHF LVEF ~ 45-50%, which is improved from previous echo will stop diuretics at this time due to dehydration - was taking Lasix 80mg + Metolazone may need to decrease dose as outpatient Acute Kidney Injury superimposed on CKD stage 3 creatinine on admission here was > 3.0 likely due to diuretics - hold diuretics start diet, and IVFs x 1L Type 1 Diabetes HA1c = 5.8% well controlled diabetic diet continue Lantus and sliding scale Anemia H/H ~ 8.0 likely post-operative anemia continue feosol will recheck H/H in 6 hours, if no improvement, will transfuse PRBCs Post-operative Atrial Fibrillation currently on Amiodarone NSR with 1st degree block on EKG Peripheral Neuropathy cont. Lyrica GERD -continue PPI Depression cont. Effexor DVT ppx subq heparin FULL CODE
[2016-07-28 11:59] VITALS: BP 112/67; PULSE 65; TEMP 36.6; O2SAT 93
--- NOTE | 2016-07-28 12:16 | CARDIOLOGY PROGRESS NOTE ---
DATE: 07/28/2016 DATE: 07/28/2016. SUBJECTIVE: The patient was seen and examined at the bedside. Currently, she is chest pain free. She describes a left-sided chest pain which radiates to her scapular region primarily when bending forward. The patient tends to feel better when lying supine. Denies shortness of breath. Her diuretics have been placed on hold and she is receiving gentle IV hydration due to acute renal insufficiency. Her VQ scan low probability for pulmonary embolus, troponins are flat and with no elevation of CK or CK-MB. Her resting 2D transthoracic echo demonstrates normal wall motion with mild LV systolic dysfunction. REVIEW OF SYSTEMS: The pertinent positives noted above, a 4-system review including cardiovascular, pulmonary, gastroenterology, neurologic system is otherwise negative. MEDICATIONS: Reviewed via EMR. Please see list for details. Telemetry demonstrates sinus rhythm. Repeat ECG demonstrates sinus rhythm, nonspecific T-wave abnormality. LABORATORY DATA: White blood cell count 12.33, hemoglobin is 8.0, platelet count is 404. Sodium 134, potassium 3.2, chloride is 89, CO2 is 39, BUN is 88, creatinine is 3.10 down from 3.30. PHYSICAL EXAMINATION: VITAL SIGNS: Temperature is 36.5 degrees centigrade, pulse 69 beats per minute and regular, respiratory rate 20 breaths per minute, blood pressure 121/65, SaO2 is 96% on 3 liters. GENERAL: NAD, awake and alert. Chronically ill. HEAD, EYES, EARS, NOSE, AND THROAT: Mucous membranes are dry. No scleral icterus. Conjunctivae pink. NECK: Veins are flat. No JVD or HJR. No carotid bruit. HEART: Regular with a normal S1 and S2. There is no murmur, rub, or gallop. LUNGS: Demonstrate no rales, rhonchi or wheeze. ABDOMEN: Obese, nontender. No rebound or guarding. Normal bowel sounds. EXTREMITIES: Demonstrate trace bilateral pedal edema. NEUROLOGIC: Demonstrates no focal motor deficit. FINAL IMPRESSION: 1. Atypical chest discomfort, I suspect is postoperative and musculoskeletal in origin. 2. Acute renal insufficiency superimposed on chronic kidney disease secondary to diuretic therapy. 3. Postoperative atrial fibrillation, currently sinus rhythm on amiodarone. 4. Mild left ventricular systolic dysfunction. 5. Diabetes type 1. 6. Postoperative anemia. PLAN AND RECOMMENDATIONS: Agree with holding diuretic therapy and gentle IV hydration at this time. Repeat basic metabolic panel in the a.m. The patient will continue her other cardiovascular medications including aspirin, amiodarone, atorvastatin. She may participate in physical therapy. Antibiotics will be continued per internal medicine. Cultures are pending at this time.
[2016-07-28] MEDS ORDERED: PIPERACILL/TAZOBAC IV 3.375 GM in DEXTROSE 5% 100ML 100 ML IV SCH (14:00)
[2016-07-28] MEDS: PIPERACILL/TAZOBAC IV 3.375 GM in DEXTROSE 5% 100ML IV SCH ×2 (14:23→21:39)
[2016-07-28 14:32] LABS: HEMATOCRIT 26.4 % (37-47)
[2016-07-28 15:19] VITALS: BP 98/61; PULSE 74; TEMP 36.4; O2SAT 95
[2016-07-28 19:30] VITALS: BP 118/67; PULSE 74; TEMP 36.7; O2SAT 94
[2016-07-28] MEDS: VENLAFAXINE HCL XR 150 MG CAPXR PO SCH (21:40)
[2016-07-28] MEDS: ATORVASTATIN 40 MG TAB PO SCH (21:41)
[2016-07-28] MEDS: VENLAFAXINE HCL XR 37.5 MG CAPXR PO SCH (21:41)
[2016-07-28 23:50] VITALS: BP 113/65; PULSE 66; TEMP 36.7; O2SAT 95
[2016-07-29 04:12] VITALS: BP 128/78; PULSE 71; TEMP 36.6; O2SAT 98
[2016-07-29] MEDS: HEPARIN SOD 5000 UNIT/0.5 ML CARP SQ SCH ×3 (06:06→20:13)
[2016-07-29] MEDS: PIPERACILL/TAZOBAC IV 3.375 GM in DEXTROSE 5% 100ML IV SCH ×3 (06:07→20:11)
[2016-07-29 06:36] LABS: HEMATOCRIT 26.5 % (37-47); MEAN CELL VOLUME 96.4 fL (80-100); MEAN CORPUSCULAR HEMOGLOBIN 29.5 pg (25-34); MEAN CORPUSCULAR HGB CONC 30.6 g/dl (32-36); MEAN PLATELET VOLUME 9.4 fL (7.4-10.4); PLATELET COUNT 424 K/uL (130-400); RED BLOOD COUNT 2.75 M/uL (4.2-5.4); WHITE BLOOD COUNT 12.61 K/uL (4.8-10.8)
[2016-07-29 07:12] LABS: BUN/CREATININE RATIO 27.2 (10-20); CALCIUM 9.1 mg/dl (8.5-10.1); CREATININE 2.9 mg/dl (0.60-1.20); MAGNESIUM 2.5 mg/dl (1.8-2.4); POTASSIUM 3.8 mmol/L (3.5-5.1)
[2016-07-29] MEDS: TRAMADOL HCL 50 MG TAB PO PRN ×2 (07:41→22:13)
[2016-07-29] MEDS: DICYCLOMINE HCL 20 MG TAB PO SCH ×3 (07:41→20:12)
[2016-07-29] MEDS: AMIODARONE 200 MG TAB PO SCH ×2 (07:41→20:13)
[2016-07-29] MEDS: DOCUSATE SODIUM 100 MG CAP PO SCH ×2 (07:42→20:12)
[2016-07-29] MEDS: FERROUS SULFATE 325 MG TAB PO SCH ×2 (07:42→20:11)
[2016-07-29] MEDS: ASPIRIN 81 MG ECTAB PO SCH (07:42)
[2016-07-29] MEDS: FLUTICASONE PROPIONATE NA SPR 16 GM BTL NAE SCH (07:42)
[2016-07-29] MEDS: PANTOprazole SOD 40 MG TAB PO SCH (07:42)
[2016-07-29] MEDS: POTASSIUM CHLORIDE 20 MEQ TABCR PO SCH (07:43)
[2016-07-29] MEDS: PRENATAL VITAMIN TAB PO SCH (07:43)
[2016-07-29] MEDS: PREGABALIN 75 MG CAP PO SCH ×2 (07:45→20:10)
[2016-07-29] MEDS: INSULIN GLARGINE SOLOSTAR 100 UNITS/ML 3 ML PEN SC SCH (07:54)
[2016-07-29] MEDS: INSULIN ASPART 100 UNITS/ML 3 ML PEN SC SCH ×4 (07:56→21:00)
--- NOTE | 2016-07-29 08:13 | DIAGNOSTIC IMAGING REPORT ---
CHEST 2 VIEWS ROUTINE HISTORY: f/u possible pneumonia COMPARISON: Chest 07/27/2016. FINDINGS: No pneumothorax. Postoperative changes. The heart remains enlarged. Mild pulmonary vascular congestion has improved. Small left pleural effusion and left basilar densities persist. The right lung remains clear. IMPRESSION: 1. Improvement in the pulmonary basilar congestion. 2. Small left pleural effusion and left basilar densities persist. This may represent a left lower lobe pneumonia. One month follow-up is recommended to ensure resolution. Electronically signed by: Juan Lincoln M.D. 07/29/2016 8:12 AM Dictated Date/Time: 07/29/2016 8:11 AM
[2016-07-29] MEDS: POLYETHYLENE (MIRALAX) 17 GM PACK PO SCH (09:00)
--- NOTE | 2016-07-29 09:29 | Progress Note ---
Subjective Date of Service: July 29, 2016. Subjective Pt evaluation today including: conversation w/ patient, physical exam, lab review, review of studies, review of inpatient medication list Saw/examined the patient in room 208 She had her CXR this morning, and just came back to the room States she's doing okay, her pain has improved, and now it is just an achy pain which is reproducible with palpation Has been eating well. Problem List Medical Problems: (1) Abnormal EKG Status: Acute (2) Acute chest pain Status: Acute (3) Anemia Status: Chronic (4) Elevated serum creatinine Status: Acute (5) Hypoxia Status: Acute Review of Systems Constitutional: + weakness, No chills, No fever Respiratory: No cough, No dyspnea at rest, No dyspnea on exertion, No hemoptysis, No shortness of breath, No sputum, No wheezing Cardiac: + chest pain Abdomen: No constipation, No diarrhea, No nausea, No pain, No vomiting Heme: No abnormal bleeding/bruising Medications Current Inpatient Medications Medications (Trade) Dose Ordered Sig/[place]wart Route Start Time Stop Time Status Last Admin Dose Admin Heparin Sodium (Porcine) (Heparin Sq 5000 Unit/0.5ml) 5,000 unit Q8 SQ 07/27/16 22:00 08/26/16 21:59 07/29/16 06:06 5,000 UNIT Acetaminophen (Tylenol Tab) 650 mg Q4H PRN PO 07/27/16 14:45 08/26/16 14:44 07/27/16 23:17 650 MG Ondansetron HCl (Zofran Inj) 4 mg Q6H PRN IV 07/27/16 14:45 08/26/16 14:44 Nitroglycerin (Nitrostat Tab) 0.4 mg UD PRN SL 07/27/16 14:45 08/26/16 14:44 Amiodarone HCl (Cordarone Tab) 200 mg BID PO 07/27/16 21:00 08/26/16 20:59 07/29/16 07:41 200 MG Aspirin (Ecotrin Tab) 162 mg DAILY PO 07/28/16 09:00 08/27/16 08:59 07/29/16 07:42 162 MG Atorvastatin Calcium (Lipitor Tab) 80 mg QPM PO 07/27/16 21:00 08/26/16 20:59 07/28/16 21:41 80 MG Cyclobenzaprine HCl (Flexeril Tab) 5 mg BID PRN PO 07/27/16 15:00 08/26/16 14:59 Dicyclomine HCl (Bentyl Tab) 20 mg TID PO 07/27/16 21:00 08/26/16 20:59 07/29/16 07:41 20 MG Docusate Sodium (coLACE CAP) 100 mg BID PO 07/27/16 21:00 08/26/16 20:59 07/29/16 07:42 100 MG Ferrous Sulfate (Feosol Tab) 325 mg BID PO 07/27/16 21:00 08/26/16 20:59 07/29/16 07:42 325 MG Fluticasone Propionate (Flonase Nasal [place]) 1 sprays DAILY PAVEL 07/28/16 09:00 08/27/16 08:59 07/29/16 07:42 1 SPRAYS Prenat Multivit/ [place]/Iron/Folic Ac ( Vitamin Tab) 1 tab DAILY PO 07/28/16 09:00 08/27/16 08:59 07/29/16 07:43 1 TAB Pregabalin (Lyrica Cap) 150 mg BID PO 07/27/16 21:00 08/26/16 20:59 07/29/16 07:45 150 MG Tramadol HCl (Ultram Tab) 50 mg Q4H PRN PO 07/27/16 15:00 08/26/16 14:59 07/29/16 07:41 50 MG Venlafaxine HCl (effeXOR EXTENDED REL CAP) 150 mg QPM PO 07/27/16 21:00 08/26/16 20:59 07/28/16 21:40 150 MG Venlafaxine HCl (effeXOR EXTENDED REL CAP) 37.5 mg QPM PO 07/27/16 21:00 08/26/16 20:59 07/28/16 21:41 37.5 MG Pantoprazole Sodium (Protonix Tab) 40 mg DAILY PO 07/28/16 09:00 08/27/16 08:59 07/29/16 07:42 40 MG Polyethylene (Miralax Powder Packet) 17 gm DAILY PO 07/28/16 09:00 08/27/16 08:59 Potassium Chloride (Klor-Con Tab) 20 meq QAM PO 07/28/16 09:00 08/27/16 08:59 07/29/16 07:43 20 MEQ Insulin Aspart (novoLOG ASPART) SLIDING SCALE If C... ACHS SC 07/27/16 17:00 08/26/16 16:59 07/28/16 17:25 4 UNITS Glucose (Glucose 40% Gel) 15-30 GRAMS 15 GRAMS... UD PRN PO 07/27/16 15:00 08/26/16 14:59 Glucose (Glucose Chew Tab) 4-8 Tablets 4 Tabl... UD PRN PO 07/27/16 15:00 08/26/16 14:59 Dextrose (Dextrose 50% 50ML Syringe) 25-50ML OF 50% DW IV FOR... UD PRN IV 07/27/16 15:00 08/26/16 14:59 Glucagon (Glucagon Inj) 1 mg UD PRN SQ 07/27/16 15:00 08/26/16 14:59 Piperacillin Sod/ Tazobactam Sod (Consult) 1 ea UD PRN N/A 07/27/16 15:30 08/26/16 15:29 Insulin Glargine 15 unit 15 unit DAILY SC 07/28/16 09:00 08/27/16 08:59 07/29/16 07:54 15 UNIT Piperacillin Sod/ Tazobactam Sod/ Dextrose (Zosyn Iv/D5 100ml) 115 ml @ 28.75 mls/ hr Q8 IV 07/28/16 14:00 08/04/16 13:59 07/29/16 06:07 28.75 MLS/HR Objective Vital Signs Date Time Temp Pulse Resp B/P Pulse Ox O2 Delivery O2 Flow Rate FiO2 07/29/16 04:12 36.6 71 20 128/78 98 Nasal Cannula 3.0 07/29/16 04:00 Nasal Cannula 3.0 07/28/16 23:59 Nasal Cannula 3.0 07/28/16 23:50 36.7 66 15 113/65 95 Nasal Cannula 3.0 07/28/16 20:00 Nasal Cannula 3.0 07/28/16 19:30 36.7 74 20 118/67 94 Nasal Cannula 2.0 07/28/16 16:00 Nasal Cannula 3.0 07/28/16 15:19 36.4 74 18 98/61 95 Room Air 07/28/16 12:00 Nasal Cannula 3.0 07/28/16 11:59 36.6 65 14 112/67 93 Nasal Cannula 3.0 Physical Exam General Appearance: no apparent distress Respiratory/Chest: lungs clear, normal breath sounds, no respiratory distress, no accessory muscle use, + pertinent finding (+chest wall tenderness) Cardiovascular: regular rate, rhythm, no edema, no murmur Extremities: normal inspection, no pedal edema Neurologic/Psychiatric: no motor/sensory deficits, alert, normal mood/affect Laboratory Results Last 24 Hours Test 07/28/16 11:25 07/28/16 14:17 07/28/16 17:21 07/28/16 19:58 Bedside Glucose 219 mg/dl 241 mg/dl 148 mg/dl Hemoglobin 8.5 g/dL Hematocrit 26.4 % Test 07/29/16 06:24 07/29/16 06:33 White Blood Count 12.61 K/uL Red Blood Count 2.75 M/uL Hemoglobin 8.1 g/dL Hematocrit 26.5 % Mean Corpuscular Volume 96.4 fL Mean Corpuscular Hemoglobin 29.5 pg Mean Corpuscular Hemoglobin Concent 30.6 g/dl RDW Standard Deviation 57.8 fL RDW Coefficient of Variation 16.8 % Platelet Count 424 K/uL Mean Platelet Volume 9.4 fL Sodium Level 136 mmol/L Potassium Level 3.8 mmol/L Chloride Level 92 mmol/L Carbon Dioxide Level 34 mmol/L Anion Gap 10.0 mmol/L Blood Urea Nitrogen 79 mg/dl Creatinine 2.90 mg/dl Est Creatinine Clear Calc Drug Dose 27.6 ml/min Estimated GFR () 22.4 Estimated GFR (Non- 19.3 BUN/Creatinine Ratio 27.2 Random Glucose 107 mg/dl Calcium Level 9.1 mg/dl Magnesium Level 2.5 mg/dl Bedside Glucose 116 mg/dl Assessment and Plan This is a 40 year old female with recent CABG x4 at [facility] on 07/16, post- operative atrial fibrillation, ischemic cardiomyopathy and reduced LVEF presents with L sided chest pain Chest Pain in the setting of recent CABG x4 07/29 PT/OT, plan to ambulate chest wall tenderness continue aspirin, statin, holding diuretics 07/28 bypass done at [place] on 07/16 recently discharged to [facility] on 07/26 presented to [facility] on 07/27 with chest pain attempted transfer back to tertiary care center - refused by physician this pain seems more like a chest wall tenderness cardiac enzymes are elevated, though expectedly so, due to recent surgery enzymes are trending down echo performed and LVEF improved to around 45-50% will continue aspirin & statin at this time any other input from cardiology appreciated Possible Post-operative Pneumonia 07/29 repeat CXR done, possible pneumonia noted will continue Zosyn for now, switch to Levaquin on discharge for a total of 7 days repeat CXR in one month 07/28 CXR - L lung base opacity WBC elevated ~ 14k on admission, down to 12k started on Zosyn + Vanco - due to recent admission MRSA swab negative - stopped Vanco continue Zosyn for now Hypoxia hypoxia on admission; possibly secondary to pneumonia? V/Q scan - low probability for acute PE has been requiring 2L of O2 at [facility] currently back to 2L hold diuretics Anemia 07/29 H/H remains around the 8.0-8.5 range may need to transfuse one unit (recent hx. of CABG) 07/28 H/H ~ 8.0 likely post-operative anemia continue feosol will recheck H/H in 6 hours, if no improvement, will transfuse PRBCs Ischemic Cardiomyopathy Systolic CHF LVEF ~ 45-50%, which is improved from previous echo will stop diuretics at this time due to dehydration - was taking Lasix 80mg + Metolazone may need to decrease dose as outpatient Acute Kidney Injury superimposed on CKD stage 3 07/29 slight improvement in kidney function 07/28 creatinine on admission here was > 3.0 likely due to diuretics - hold diuretics start diet, and IVFs x 1L Type 1 Diabetes HA1c = 5.8% well controlled diabetic diet continue Lantus and sliding scale Post-operative Atrial Fibrillation currently on Amiodarone NSR with 1st degree block on EKG Peripheral Neuropathy cont. Lyrica GERD -continue PPI Depression cont. Effexor DVT ppx subq heparin FULL CODE
--- NOTE | 2016-07-29 10:45 | Cardiology Follow-Up ---
Subjective General Date of Service: July 29, 2016. Pt evaluation today including: conversation w/ patient, physical exam, chart review, lab review, review of studies, review of inpatient medication list History of Present Illness The patient is a 40 year old female seen in follow up. No recurrent CP overnight. Denies palpitations. Creatinine trending down. Chronic fatigue unchanged. Allergies Coded Allergies: No Known Allergies (Unverified , 07/27/16) Social History Smoking Status: Never Smoker Hx Tobacco Use In Past Year?: No Hx Alcohol Use - Type And Amou: No Hx Substance Use - Type And Am: No Problem List Medical Problems: (1) Abnormal EKG Status: Acute (2) Acute chest pain Status: Acute (3) Anemia Status: Chronic (4) Elevated serum creatinine Status: Acute (5) Hypoxia Status: Acute Review of Systems Respiratory: No cough, No dyspnea at rest, No dyspnea on exertion, No hemoptysis, No shortness of breath, No sputum, No wheezing Cardiac: + edema, No chest pain, No claudication, No orthopnea, No palpitations Physical Exam Vital Signs Last Vital Signs Documentation Date Time Temp Pulse Resp B/P Pulse Ox O2 Delivery O2 Flow Rate FiO2 07/29/16 04:12 36.6 71 20 128/78 98 Nasal Cannula 3.0 Physical Exam Constitutional: General Apperance: overweight Level of Distress: chronically ill Head: normocephalic, atraumatic Neck: supple, trachea midline Lungs: Auscultation: no wheezing, no rales/crackles, no rhonchi Cardiovascular: Heart Auscultation: RRR, normal S1, normal S2, no murmurs Peripheral Pulses: Radial Pulse: normal on the right Abdomen: Bowel Sounds: normal Inspection & Palpation: soft, non-distended, no tenderness, guarding & rebound Extremities: no cyanosis, no clubbing, no ulcers, edema Neurologic: Gait & Station: pertinent finding (No focal motor deficit) Cranial Nerves: grossly intact Assessment and Plan Assessment and Plan FINAL IMPRESSION: 1. Atypical chest discomfort - resolved -suspect postoperative musculoskeletal pain. 2. Acute renal insufficiency superimposed on chronic kidney disease secondary to diuretic therapy. - diuretics on hold - creatinine improving with IVF 3. Postoperative atrial fibrillation, currently sinus rhythm on amiodarone. 4. Mild left ventricular systolic dysfunction. 5. Diabetes type 1. 6. Postoperative anemia - H/H stable PLAN AND RECOMMENDATIONS: Continue to hold diuretics. Follow H/H. Maintain Hgb > 8.0gm/dL. Continue current cardiovascular medications including aspirin, amiodarone, atorvastatin. Repeat BMP in AM. PT /OT. Laboratory Results Last 24 Hours Test 07/28/16 11:25 07/28/16 14:17 07/28/16 17:21 07/28/16 19:58 Bedside Glucose 219 mg/dl 241 mg/dl 148 mg/dl Hemoglobin 8.5 g/dL Hematocrit 26.4 % Test 07/29/16 06:24 07/29/16 06:33 White Blood Count 12.61 K/uL Red Blood Count 2.75 M/uL Hemoglobin 8.1 g/dL Hematocrit 26.5 % Mean Corpuscular Volume 96.4 fL Mean Corpuscular Hemoglobin 29.5 pg Mean Corpuscular Hemoglobin Concent 30.6 g/dl RDW Standard Deviation 57.8 fL RDW Coefficient of Variation 16.8 % Platelet Count 424 K/uL Mean Platelet Volume 9.4 fL Sodium Level 136 mmol/L Potassium Level 3.8 mmol/L Chloride Level 92 mmol/L Carbon Dioxide Level 34 mmol/L Anion Gap 10.0 mmol/L Blood Urea Nitrogen 79 mg/dl Creatinine 2.90 mg/dl Est Creatinine Clear Calc Drug Dose 27.6 ml/min Estimated GFR () 22.4 Estimated GFR (Non- 19.3 BUN/Creatinine Ratio 27.2 Random Glucose 107 mg/dl Calcium Level 9.1 mg/dl Magnesium Level 2.5 mg/dl Bedside Glucose 116 mg/dl
--- NOTE | 2016-07-29 11:12 | Pharmacy Progress Note ---
Glycemic Control: Initial Note Date of Service July 29, 2016. Scope Glycemic Pharmacist to provide recommendations to improve glycemic control (all ICU patients are screened for hyperglycemia and treatment recommendations are provided per protocol). Pt identified with hyperglycemia (BSG above 180) while admitted to [facility] Subjective The patient is a 40 year old female admitted on July 27, 2016 at 14:36 for chest pain, recent CABG, possible pneumonia. Patient's past medical history is significant for diabetes mellitus (reported to be type 1 dm??) Objective Height (Feet): 5 Height (Inches): 3.00 Weight (Kilograms): 92.500 Accuchecks BSG (last 24hrs): Test 07/28/16 11:25 07/28/16 17:21 07/28/16 19:58 07/29/16 06:24 Bedside Glucose 219 mg/dl (70-90) 241 mg/dl (70-90) 148 mg/dl (70-90) Random Glucose 107 mg/dl (70-99) Test 07/29/16 06:33 07/29/16 10:41 Bedside Glucose 116 mg/dl (70-90) 225 mg/dl (70-90) Laboratory Data (last 24hrs) Test 07/29/16 06:24 Anion Gap 10.0 mmol/L BUN/Creatinine Ratio 27.2 Blood Urea Nitrogen 79 mg/dl Creatinine 2.90 mg/dl Potassium Level 3.8 mmol/L Sodium Level 136 mmol/L White Blood Count 12.61 K/uL Recent Pertinent Medications Outpatient Anti-diabetic Regimen (per patient report): * Lantus 30 units SQ BID * Novolog 18 units w/ meals and per sliding scale; 70-130 0 units; 131-180 2 units; 181-240 4 units, etc... * A1c = 5.8% 07/28/16 The patient is currently receiving: * Basal Insulin: Lantus 15 units every 24 hours - dosed in the AM * Correctional Insulin: Novolog Correction per scale ACHS Goal Range: Low 100 mg/dL - High 140 mg/dL Correction Factor: 30 mg/dL/unit * Prandial Insulin: Per carb ratio of 1 unit per 15 grams CHO consumed * Oral Agents: None Risk Factors for Insulin Resistance: * Steroids: n/a * Infection: possible PNX; receiving Zosyn * Pressors: n/a * IVF: n/a * Recent Surgery: n/a * Diet: ordered T1DM / Renal / AHA / Low Na diet; Patient did eat breakfast this AM * Mechanical Ventilation: n/a Assessment & Plan ASSESSMENT: 07/29/16 * Patient is reported to be type 1 dm; this is per patient report as well - however given the greatly reduced insulin requirements while hospitalized I question if this is correct as glycemic control would be expected to deteriorate quickly with such a large decrease in basal insulin needs. * Fasting BSGs at goal w/ 15 units of Lantus on board (fasting BSG 116 today) - would recommend continuing the same dose * 2 of 3 post-prandial BSGs elevated yesterday. Pre-lunch elevation was likely secondary to no insulin given w/ breakfast. Pre-dinner BSG also elevated however climb was not as great - insulin had been administered w/ lunch. Would recommend increasing the prandial insulin dose slightly at this time. RECOMMEND: * Continuing Lantus 15 units SQ Q AM * Continuing correction factor 30 mg/dl/unit * Changing carb ratio to 1 unit per 10 grams CHO consumed * Continuing goal range of Low 100 mg/dL - High 140 mg/dL Pharmacy will continue to provide recommendations in EMR while patient admitted to 1E/2E. Physicians may request pharmacy to continue to follow patient when transferred out of the ICU and/or consult pharmacy to write glycemic control orders * Please note that the plan above was derived based on current level of insulin resistance and hospital stress. These recommendations are appropriate for inpatient admission only. Plan of care upon discharge will need to be reassessed to avoid potential outpatient hypo/hyperglycemia. Thank you.
[2016-07-29] MEDS ORDERED: INSDGIPEN SC (12:03)
--- NOTE | 2016-07-29 12:09 | Discharge Instructions ---
Discharge Instructions Date of Service July 29, 2016. Admission Reason for Admission: Chest Pain Discharge Discharge Diagnosis / Problem: Chest Pain, likely secondary to post-surgical, chest wall tenderness; DWAYNE Discharge Goals Goal(s): Decrease discomfort, Improve function, Diagnostic testing, Therapeutic intervention Activity Recommendations Activity Level: Assistance Required . Additional Information Patient informed of condition: Yes Advance Directives: No DNR: No Level of Care: Acute Rehab Communicable Disease: No Prognosis: Stable Oxygen at (LPM): PRN & HS Driscoll Catheter: No Instructions / Follow-Up Instructions / Follow-Up Please follow-up with primary care physician and cardiology after stay at [facility] * Should get a daily CBC and BMP; Hgb should be monitored and kept above 8 * Diuretics are held (Lasix and Metolazone) - kidney function should be monitored daily until creatinine back to baseline - f/u with cardiology regarding diuretics * Given Levaquin for pneumonia - repeat CXR in 2-3 weeks Current Hospital Diet Patient's current hospital diet: Diabetes Type 1 Diet, Low Sodium Diet (2gm Na) , AHA Diet (Heart Healthy), Renal Diet Discharge Diet Recommended Diet: AHA Diet (Heart Healthy), Low Sodium Diet (2gm Na), Diabetes Type 1 Diet, Renal Diet Pending Studies Studies pending at discharge: no Laboratory Results Hemoglobin A1c Test 07/28/16 07:17 Range/Units Estimated Average Glucose 120 mg/dl Hemoglobin A1c 5.8 H 4.5-5.6 % Medical Emergencies . Who to Call and When: Medical Emergencies: If at any time you feel your situation is an emergency, please call 911 immediately. . Non-Emergent Contact Non-Emergency issues call your: Primary Care Provider, Special Investigator . . "Provider Documentation" section prepared by Stevan Nails. . Core Measure Problem Core Measures: None
[2016-07-29] MEDS ORDERED: LEVO-459 PO ×2 (12:13→12:21)
[2016-07-29 12:22] VITALS: BP 131/77; PULSE 66; TEMP 36.3; O2SAT 93
--- NOTE | 2016-07-29 12:22 | Discharge Summary ---
Discharge Summary Date of Service July 29, 2016. Discharge Summary Admission Date: July 27, 2016 at 14:36 Discharge Date: July 29, 2016 Discharge Disposition: Home Principal Diagnosis: Chest Pain, likely secondary to post-surgical, chest wall tenderness; DWAYNE Medication Reconciliation New Medications: Levofloxacin (Levaquin) 500 Mg Tab 250 MG PO DAILY for 4 Days, #2 TABS Changed Medications: Insulin Glargine (Lantus Solostar) 100 Unit/Ml Inj 15 UNITS SC HS for 15 Days, #1 PEN (Changed from: BID) Continued Medications: Amiodarone Hcl (Cordarone) 200 Mg Tab 200 MG PO BID, TAB Aspirin (Aspirin Ec) 81 Mg Tab 162 MG PO DAILY Atorvastatin (Lipitor) 40 Mg Tab 80 MG PO QPM, TAB Cyclobenzaprine Hcl (Flexeril) 5 Mg Tab 5 MG PO BID, TAB PRN Dicyclomine Hcl (Dicyclomine Hcl) 20 Mg Tab 20 MG PO TID for 10 Days, #30 TAB 1 Refill Docusate Sodium (Docusate Sodium) 100 Mg Cap 100 MG PO BID for 7 Days, #14 CAP Ferrous Sulfate (Ferrous Sulfate) 325 Mg Tab 325 MG PO BID Fluticasone Propionate (Nasal) (Flonase Allergy Relief) 50 Mcg/Act Spr 1 SPRAY PAVEL DAILY Heparin Sodium (Porcine) (Heparin Sodium) 5,000 Unit/Ml Inj 5000 UNIT SQ Q8 Insulin Aspart (Novolog Flexpen) 100 Units/Ml Inj 1 UNIT SQ ACHS uses sliding scale--sugar 70-130, use 0 units, sugar 131-180 use 2 units, sugar 181-240, use 4 units, sugar 241-300, use 6 units, sugar 301-350 use 8 units, 351-400 use 10 units, and over 400 give 12 units and call doctor Multivit/Min/Iron/Fol Ac/Pren ( Vitamin) Tab 1 TAB PO DAILY, TAB Omeprazole (Prilosec) 20 Mg Cap 20 MG PO DAILY, CAP Polyethylene Glycol 3350 (Miralax) 1 Pow Pow 17 GM PO DAILY, #255 GM Pregabalin (Lyrica) 75 Mg Cap 150 MG PO BID, CAP Tramadol (Ultram) 50 Mg Tab 50 MG PO Q4H PRN for Pain, TAB Venlafaxine Hcl (Venlafaxine Extended Rel) 37.5 Mg Cap 37.5 MG PO QPM, CAP Venlafaxine Hcl (Effexor Xr) 150 Mg Cap 150 MG PO QPM for 30 Days, CAP 2 Refills Discontinued Medications: Furosemide (Lasix) 80 Mg Tab 80 MG PO DAILY, TAB Metolazone (Zaroxolyn) 5 Mg Tab 5 MG PO DAILY, TAB Potassium Ext Rel (Klor-Con) 20 Meq Tabcr 10 MEQ PO QAM, TAB Admission Information HPI (per Admitting provider): Patient seen and examined. 40 year old female with complicated PMHx of CAD, DM1 , HTN, HLD, nocturnal hypoxia, CKD stage 3, and recent CABG x 4 on 07/16 presents to the ED from [facility] complaining of chest pain. Patient had a CABG x 4 on 07/16 at [facility] and was discharged last evening to [facility]. Hospital course had been complicated by DWAYNE. Patient reports that she has been having off and on left sided chest pain with radiation around the back to the left shoulder blade for several weeks. She states she had this pain prior to the CABG and has continued since. She reports it can last anywhere from 20 minutes to several hours and then resolves spontaneously. She rates the pain as a 7/10. She reports she had been having this pain while in [facility] but did not tell anyone. She had this pain again today while at [facility] and was referred to the ED for further evaluation. She denies fevers, chills, URI symptoms, SOB, palpitations, nausea, vomiting, diarrhea, dysuria, calf pain and edema. In the ED patient was hypoxic but otherwise VS were stable, a STAT Echo was completed, troponin was 0.6, WBC count was 14K, Hgb is 8.2. She is currently resting comfortably pain free. Differential diagnosis include PE d/t patient's DWAYNE on CKD a CTA could not be completed. Ddimer and doppler US were pending at time of admission. Case was discussed with [facility] by ED physician and per ED physician [facility] was not willing to accept the patient. She will be admitted for further workup and treatment. Physical Exam (per Admitting): General Appearance: + pertinent finding (WD/WN 40 year old female lying in bed in [facility] ) Head: normocephalic, atraumatic Eyes: PERRL, EOMI, sclerae normal ENT: hearing grossly normal, pharynx normal Neck: supple, no JVD Respiratory/Chest: lungs clear, normal breath sounds, no respiratory distress, no accessory muscle use, + pertinent finding (chest tender to palpation, well healing sternal incision s/p CABG ) Cardiovascular: regular rate, rhythm, no edema, no gallop, no JVD, no murmur , normal peripheral pulses Abdomen/GI: normal bowel sounds, non tender, soft Back: normal inspection, no muscle spasm Extremities/Musculoskelatal: no calf tenderness, normal capillary refill, no pedal edema Neurologic/Psych: alert, oriented x 3, + pertinent finding (no focal deficits noted on gross exam ) Skin: normal color, warm/dry, no rash Lymphatic: no adenopathy Hospital Course This is a 40 year old female with recent CABG x4 at [facility] on 07/16, post- operative atrial fibrillation, ischemic cardiomyopathy and reduced LVEF presents with L sided chest pain Chest Pain in the setting of recent CABG x4 07/29 PT/OT, plan to ambulate chest wall tenderness continue aspirin, statin, holding diuretics 07/28 bypass done at [place] on 07/16 [facility] presented to [facility] on 07/27 with chest pain attempted transfer back to tertiary care center - refused by physician this pain seems more like a chest wall tenderness cardiac enzymes are elevated, though expectedly so, due to recent surgery enzymes are trending down echo performed and LVEF improved to around 45-50% will continue aspirin & statin at this time any other input from cardiology appreciated Possible Post-operative Pneumonia 07/29 repeat CXR done, possible pneumonia noted will continue Zosyn for now, switch to Levaquin on discharge for a total of 7 days repeat CXR in one month 07/28 CXR - L lung base opacity WBC elevated ~ 14k on admission, down to 12k started on Zosyn + Vanco - due to recent admission MRSA swab negative - stopped Vanco continue Zosyn for now Hypoxia hypoxia on admission; possibly secondary to pneumonia? V/Q scan - low probability for acute PE has been requiring 2L of O2 at [facility] currently back to 2L hold diuretics Anemia 07/29 H/H remains around the 8.0-8.5 range may need to transfuse one unit (recent hx. of CABG) 07/28 H/H ~ 8.0 likely post-operative anemia continue feosol will recheck H/H in 6 hours, if no improvement, will transfuse PRBCs Ischemic Cardiomyopathy Systolic CHF LVEF ~ 45-50%, which is improved from previous echo will stop diuretics at this time due to dehydration - was taking Lasix 80mg + Metolazone may need to decrease dose as outpatient Acute Kidney Injury superimposed on CKD stage 3 07/29 slight improvement in kidney function 07/28 creatinine on admission here was > 3.0 likely due to diuretics - hold diuretics start diet, and IVFs x 1L Type 1 Diabetes HA1c = 5.8% well controlled diabetic diet continue Lantus and sliding scale Post-operative Atrial Fibrillation currently on Amiodarone NSR with 1st degree block on EKG Peripheral Neuropathy cont. Lyrica GERD -continue PPI Depression cont. Effexor DVT ppx subq heparin FULL CODE Total time spent on discharge = 50 minutes This includes examination of the patient, discharge planning, medication reconciliation, and communication with other providers. Discharge Instructions Please follow-up with primary care physician and cardiology after stay at [facility] * Should get a daily CBC and BMP; Hgb should be monitored and kept above 8 * Diuretics are held (Lasix and Metolazone) - kidney function should be monitored daily until creatinine back to baseline - f/u with cardiology regarding diuretics * Given Levaquin for pneumonia - repeat CXR in 2-3 weeks
[2016-07-29 14:28] LABS: HEMATOCRIT 25.9 % (37-47)
[2016-07-29 15:30] VITALS: BP 97/51; PULSE 71; TEMP 36.6; O2SAT 79
[2016-07-29 15:31] VITALS: O2SAT 91
[2016-07-29 20:00] VITALS: BP 114/68; PULSE 74; TEMP 36.3; O2SAT 95
[2016-07-29] MEDS: VENLAFAXINE HCL XR 150 MG CAPXR PO SCH (20:11)
[2016-07-29] MEDS: VENLAFAXINE HCL XR 37.5 MG CAPXR PO SCH (20:11)
[2016-07-29] MEDS: ATORVASTATIN 40 MG TAB PO SCH (20:12)
[2016-07-29 23:58] VITALS: BP 124/76; PULSE 73; TEMP 36.7; O2SAT 97
[2016-07-30] MEDS: ACETAMINOPHEN 325 MG TAB PO PRN (01:24)
[2016-07-30 04:15] VITALS: BP 149/81; PULSE 80; TEMP 36.8; O2SAT 98
[2016-07-30] MEDS: PIPERACILL/TAZOBAC IV 3.375 GM in DEXTROSE 5% 100ML IV SCH ×3 (05:34→22:22)
[2016-07-30] MEDS: HEPARIN SOD 5000 UNIT/0.5 ML CARP SQ SCH ×3 (05:35→22:21)
[2016-07-30 06:02] LABS: MEAN CORPUSCULAR HEMOGLOBIN 30.6 pg (25-34); MEAN CORPUSCULAR HGB CONC 31.5 g/dl (32-36); MEAN PLATELET VOLUME 9.1 fL (7.4-10.4); PLATELET COUNT 413 K/uL (130-400); RED BLOOD COUNT 2.68 M/uL (4.2-5.4); WHITE BLOOD COUNT 11.93 K/uL (4.8-10.8)
[2016-07-30 06:47] LABS: BUN/CREATININE RATIO 21.9 (10-20); CALCIUM 9.2 mg/dl (8.5-10.1); CREATININE 3.1 mg/dl (0.60-1.20); MAGNESIUM 2.5 mg/dl (1.8-2.4)
[2016-07-30 08:02] VITALS: BP 146/76; PULSE 75; TEMP 36.5; O2SAT 97
[2016-07-30] MEDS: ASPIRIN 81 MG ECTAB PO SCH (08:04)
[2016-07-30] MEDS: PRENATAL VITAMIN TAB PO SCH (08:04)
[2016-07-30] MEDS: AMIODARONE 200 MG TAB PO SCH ×2 (08:04→22:18)
[2016-07-30] MEDS: PANTOprazole SOD 40 MG TAB PO SCH (08:05)
[2016-07-30] MEDS: FLUTICASONE PROPIONATE NA SPR 16 GM BTL NAE SCH (08:05)
[2016-07-30] MEDS: FERROUS SULFATE 325 MG TAB PO SCH ×2 (08:05→22:15)
[2016-07-30] MEDS: DICYCLOMINE HCL 20 MG TAB PO SCH ×3 (08:05→22:17)
[2016-07-30] MEDS: POTASSIUM CHLORIDE 20 MEQ TABCR PO SCH (08:05)
[2016-07-30] MEDS: PREGABALIN 75 MG CAP PO SCH ×2 (08:06→22:22)
[2016-07-30] MEDS: POLYETHYLENE (MIRALAX) 17 GM PACK PO SCH (08:06)
[2016-07-30] MEDS: DOCUSATE SODIUM 100 MG CAP PO SCH ×2 (08:07→22:16)
[2016-07-30] MEDS: INSULIN ASPART 100 UNITS/ML 3 ML PEN SC SCH ×4 (08:10→22:14)
[2016-07-30] MEDS: INSULIN GLARGINE SOLOSTAR 100 UNITS/ML 3 ML PEN SC SCH (08:11)
[2016-07-30] MEDS: TRAMADOL HCL 50 MG TAB PO PRN (09:15)
--- NOTE | 2016-07-30 09:33 | Progress Note ---
Subjective Date of Service: July 30, 2016. Subjective Pt evaluation today including: conversation w/ patient, physical exam, lab review, review of studies, review of inpatient medication list Saw/examined the patient in room 208 States that her chest pain is slightly better today (worse with palpation) No shortness of breath or cough noted Plan was for possible discharge back to [facility] on 07/29, but she became hypoxic on room air Problem List Medical Problems: (1) Abnormal EKG Status: Acute (2) Acute chest pain Status: Acute (3) Anemia Status: Chronic (4) Elevated serum creatinine Status: Acute (5) Hypoxia Status: Acute Review of Systems Constitutional: + weakness, No chills, No fever Respiratory: No cough, No shortness of breath, No sputum Cardiac: No chest pain, No palpitations Abdomen: No diarrhea, No nausea, No pain, No vomiting Medications Current Inpatient Medications Medications (Trade) Dose Ordered Sig/Stewart Route Start Time Stop Time Status Last Admin Dose Admin Heparin Sodium (Porcine) (Heparin Sq 5000 Unit/0.5ml) 5,000 unit Q8 SQ 07/27/16 22:00 08/26/16 21:59 07/30/16 05:35 5,000 UNIT Acetaminophen (Tylenol Tab) 650 mg Q4H PRN PO 07/27/16 14:45 08/26/16 14:44 07/30/16 01:24 650 MG Ondansetron HCl (Zofran Inj) 4 mg Q6H PRN IV 07/27/16 14:45 08/26/16 14:44 Nitroglycerin (Nitrostat Tab) 0.4 mg UD PRN SL 07/27/16 14:45 08/26/16 14:44 Amiodarone HCl (Cordarone Tab) 200 mg BID PO 07/27/16 21:00 08/26/16 20:59 07/30/16 08:04 200 MG Aspirin (Ecotrin Tab) 162 mg DAILY PO 07/28/16 09:00 08/27/16 08:59 07/30/16 08:04 162 MG Atorvastatin Calcium (Lipitor Tab) 80 mg QPM PO 07/27/16 21:00 08/26/16 20:59 07/29/16 20:12 80 MG Cyclobenzaprine HCl (Flexeril Tab) 5 mg BID PRN PO 07/27/16 15:00 08/26/16 14:59 07/29/16 22:13 5 MG Dicyclomine HCl (Bentyl Tab) 20 mg TID PO 07/27/16 21:00 08/26/16 20:59 07/30/16 08:05 20 MG Docusate Sodium (coLACE CAP) 100 mg BID PO 07/27/16 21:00 08/26/16 20:59 07/29/16 20:12 100 MG Ferrous Sulfate (Feosol Tab) 325 mg BID PO 07/27/16 21:00 08/26/16 20:59 07/30/16 08:05 325 MG Fluticasone Propionate (Flonase Nasal [place]) 1 sprays DAILY PAVEL 07/28/16 09:00 08/27/16 08:59 07/30/16 08:05 1 SPRAYS Prenat Multivit/ [place]/Iron/Folic Ac ( Vitamin Tab) 1 tab DAILY PO 07/28/16 09:00 08/27/16 08:59 07/30/16 08:04 1 TAB Pregabalin (Lyrica Cap) 150 mg BID PO 07/27/16 21:00 08/26/16 20:59 07/30/16 08:06 150 MG Tramadol HCl (Ultram Tab) 50 mg Q4H PRN PO 07/27/16 15:00 08/26/16 14:59 07/30/16 09:15 50 MG Venlafaxine HCl (effeXOR EXTENDED REL CAP) 150 mg QPM PO 07/27/16 21:00 08/26/16 20:59 07/29/16 20:11 150 MG Venlafaxine HCl (effeXOR EXTENDED REL CAP) 37.5 mg QPM PO 07/27/16 21:00 08/26/16 20:59 07/29/16 20:11 37.5 MG Pantoprazole Sodium (Protonix Tab) 40 mg DAILY PO 07/28/16 09:00 08/27/16 08:59 07/30/16 08:05 40 MG Polyethylene (Miralax Powder Packet) 17 gm DAILY PO 07/28/16 09:00 08/27/16 08:59 Potassium Chloride (Klor-Con Tab) 20 meq QAM PO 07/28/16 09:00 08/27/16 08:59 07/30/16 08:05 20 MEQ Insulin Aspart (novoLOG ASPART) SLIDING SCALE If C... ACHS SC 07/27/16 17:00 08/26/16 16:59 07/30/16 08:10 5 UNITS Glucose (Glucose 40% Gel) 15-30 GRAMS 15 GRAMS... UD PRN PO 07/27/16 15:00 08/26/16 14:59 Glucose (Glucose Chew Tab) 4-8 Tablets 4 Tabl... UD PRN PO 07/27/16 15:00 08/26/16 14:59 Dextrose (Dextrose 50% 50ML Syringe) 25-50ML OF 50% DW IV FOR... UD PRN IV 07/27/16 15:00 08/26/16 14:59 Glucagon (Glucagon Inj) 1 mg UD PRN SQ 07/27/16 15:00 08/26/16 14:59 Piperacillin Sod/ Tazobactam Sod (Consult) 1 ea UD PRN N/A 07/27/16 15:30 08/26/16 15:29 Insulin Glargine 15 unit 15 unit DAILY SC 07/28/16 09:00 08/27/16 08:59 07/30/16 08:11 15 UNIT Piperacillin Sod/ Tazobactam Sod/ Dextrose (Zosyn Iv/D5 100ml) 115 ml @ 28.75 mls/ hr Q8 IV 07/28/16 14:00 08/04/16 13:59 07/30/16 05:34 28.75 MLS/HR Objective Vital Signs Date Time Temp Pulse Resp B/P Pulse Ox O2 Delivery O2 Flow Rate FiO2 07/30/16 08:02 36.5 75 20 146/76 97 Nasal Cannula 3.0 07/30/16 04:15 36.8 80 18 149/81 98 3.0 07/30/16 04:00 Nasal Cannula 3.0 07/29/16 23:59 Nasal Cannula 3.0 07/29/16 23:58 36.7 73 18 124/76 97 2.0 07/29/16 20:17 Nasal Cannula 3.0 07/29/16 20:00 36.3 74 18 114/68 95 Nasal Cannula 3.0 07/29/16 16:00 Nasal Cannula 3.0 07/29/16 15:31 91 Nasal Cannula 3.0 07/29/16 15:30 36.6 71 18 97/51 79 Room Air 07/29/16 12:22 36.3 66 18 131/77 93 Nasal Cannula 3.0 07/29/16 12:00 Nasal Cannula 3.0 Physical Exam General Appearance: no apparent distress Respiratory/Chest: lungs clear, normal breath sounds, no respiratory distress, no accessory muscle use, + pertinent finding (+incisional scar, tenderness to palpation of chest wall) Cardiovascular: regular rate, rhythm, no murmur Extremities: + pertinent finding (+trace edema, b/l LE) Laboratory Results Last 24 Hours Test 07/29/16 10:41 07/29/16 14:07 07/29/16 16:02 07/29/16 20:19 Bedside Glucose 225 mg/dl 207 mg/dl 70 mg/dl Hemoglobin 8.3 g/dL Hematocrit 25.9 % Test 07/29/16 22:38 07/30/16 05:53 07/30/16 06:25 Bedside Glucose 166 mg/dl 160 mg/dl White Blood Count 11.93 K/uL Red Blood Count 2.68 M/uL Hemoglobin 8.2 g/dL Hematocrit 26.0 % Mean Corpuscular Volume 97.0 fL Mean Corpuscular Hemoglobin 30.6 pg Mean Corpuscular Hemoglobin Concent 31.5 g/dl RDW Standard Deviation 58.2 fL RDW Coefficient of Variation 16.7 % Platelet Count 413 K/uL Mean Platelet Volume 9.1 fL Sodium Level 138 mmol/L Potassium Level 4.0 mmol/L Chloride Level 94 mmol/L Carbon Dioxide Level 34 mmol/L Anion Gap 10.0 mmol/L Blood Urea Nitrogen 68 mg/dl Creatinine 3.10 mg/dl Est Creatinine Clear Calc Drug Dose 25.5 ml/min Estimated GFR () 20.6 Estimated GFR (Non- 17.8 BUN/Creatinine Ratio 21.9 Random Glucose 147 mg/dl Calcium Level 9.2 mg/dl Magnesium Level 2.5 mg/dl Assessment and Plan This is a 40 year old female with recent CABG x4 at [facility] on 07/16, post- operative atrial fibrillation, ischemic cardiomyopathy and reduced LVEF presents with L sided chest pain Acute Kidney Injury superimposed on CKD stage 3 07/30 creatinine up to > 3.0 diuretics have been held since she presented at [facility] IVFs were given gently (due to her systolic dysfunction) may need more fluid? nephrology consulted for further input 07/29 slight improvement in kidney function 07/28 creatinine on admission here was > 3.0 likely due to diuretics - hold diuretics start diet, and IVFs x 1L Chest Pain in the setting of recent CABG x4 07/30 chest wall tenderness continue aspirin, statin 07/29 PT/OT, plan to ambulate chest wall tenderness continue aspirin, statin, holding diuretics 07/28 bypass done at [place] on 07/16 recently discharged to [facility] on 07/26 presented to [facility] on 07/27 with chest pain attempted transfer back to tertiary care center - refused by physician this pain seems more like a chest wall tenderness cardiac enzymes are elevated, though expectedly so, due to recent surgery enzymes are trending down echo performed and LVEF improved to around 45-50% will continue aspirin & statin at this time any other input from cardiology appreciated Possible Post-operative Pneumonia 07/30 continue Zosyn for now 07/29 repeat CXR done, possible pneumonia noted will continue Zosyn for now, switch to Levaquin on discharge for a total of 7 days repeat CXR in one month 07/28 CXR - L lung base opacity WBC elevated ~ 14k on admission, down to 12k started on Zosyn + Vanco - due to recent admission MRSA swab negative - stopped Vanco continue Zosyn for now Hypoxia hypoxia on admission; possibly secondary to pneumonia? V/Q scan - low probability for acute PE has been requiring 2L of O2 at [facility] currently back to 2L hold diuretics Anemia 07/29 H/H remains around the 8.0-8.5 range may need to transfuse one unit (recent hx. of CABG) 07/28 H/H ~ 8.0 likely post-operative anemia continue feosol will recheck H/H in 6 hours, if no improvement, will transfuse PRBCs Ischemic Cardiomyopathy Systolic CHF LVEF ~ 45-50%, which is improved from previous echo will stop diuretics at this time due to dehydration - was taking Lasix 80mg + Metolazone may need to decrease dose as outpatient Type 1 Diabetes HA1c = 5.8% well controlled diabetic diet continue Lantus and sliding scale Post-operative Atrial Fibrillation currently on Amiodarone NSR with 1st degree block on EKG Peripheral Neuropathy cont. Lyrica GERD -continue PPI Depression cont. Effexor DVT ppx subq heparin FULL CODE
--- NOTE | 2016-07-30 11:05 | Cardiology Follow-Up ---
Subjective General Date of Service: July 30, 2016. Pt evaluation today including: conversation w/ patient, physical exam, chart review, lab review, review of studies, review of inpatient medication list History of Present Illness The patient is a 40 year old female seen in follow up. No recurrent CP overnight, however, reports sternal discomfort which is positional when lying on her right side. No associated SOB. Denies palpitations. Creatinine mildly elevated today with BUN trending down. Diuretics on hold. Chronic fatigue unchanged. Allergies Coded Allergies: No Known Allergies (Unverified , 07/27/16) Social History Smoking Status: Never Smoker Hx Tobacco Use In Past Year?: No Hx Alcohol Use - Type And Amou: No Hx Substance Use - Type And Am: No Problem List Medical Problems: (1) Abnormal EKG Status: Acute (2) Acute chest pain Status: Acute (3) Anemia Status: Chronic (4) Elevated serum creatinine Status: Acute (5) Hypoxia Status: Acute Review of Systems Respiratory: No cough, No dyspnea at rest, No dyspnea on exertion, No hemoptysis, No shortness of breath, No sputum, No wheezing Cardiac: No PND, No chest pain, No claudication, No edema, No orthopnea, No palpitations Physical Exam Vital Signs Last Vital Signs Documentation Date Time Temp Pulse Resp B/P Pulse Ox O2 Delivery O2 Flow Rate FiO2 07/30/16 08:02 36.5 75 20 146/76 97 Nasal Cannula 3.0 Physical Exam Constitutional: General Apperance: overweight Level of Distress: chronically ill Head: normocephalic, atraumatic Neck: supple, trachea midline Lungs: Auscultation: no wheezing, no rales/crackles, no rhonchi Cardiovascular: Heart Auscultation: RRR, normal S1, normal S2, no murmurs Peripheral Pulses: Radial Pulse: normal on the right Abdomen: Bowel Sounds: normal Inspection & Palpation: soft, non-distended, no tenderness, guarding & rebound Extremities: no cyanosis, no clubbing, no ulcers, edema Neurologic: Gait & Station: pertinent finding (No focal motor deficit) Cranial Nerves: grossly intact Assessment and Plan Assessment and Plan FINAL IMPRESSION: 1. Chest discomfort -likely postoperative musculoskeletal pain. 2. Acute renal insufficiency superimposed on chronic kidney disease secondary to diuretic therapy. - diuretics on hold - creatinine mildly elevated today 3. Postoperative atrial fibrillation, currently sinus rhythm on amiodarone. 4. Mild left ventricular systolic dysfunction. 5. Diabetes type 1. 6. Postoperative anemia - H/H stable PLAN AND RECOMMENDATIONS: Continue to hold diuretics. Follow H/H. Maintain Hgb > 8.0gm/dL. Continue aspirin, amiodarone, and atorvastatin. Repeat BMP in AM. Consider nephrology consultation. Laboratory Results Last 24 Hours Test 07/29/16 14:07 07/29/16 16:02 07/29/16 20:19 07/29/16 22:38 Hemoglobin 8.3 g/dL Hematocrit 25.9 % Bedside Glucose 207 mg/dl 70 mg/dl 166 mg/dl Test 07/30/16 05:53 07/30/16 06:25 White Blood Count 11.93 K/uL Red Blood Count 2.68 M/uL Hemoglobin 8.2 g/dL Hematocrit 26.0 % Mean Corpuscular Volume 97.0 fL Mean Corpuscular Hemoglobin 30.6 pg Mean Corpuscular Hemoglobin Concent 31.5 g/dl RDW Standard Deviation 58.2 fL RDW Coefficient of Variation 16.7 % Platelet Count 413 K/uL Mean Platelet Volume 9.1 fL Sodium Level 138 mmol/L Potassium Level 4.0 mmol/L Chloride Level 94 mmol/L Carbon Dioxide Level 34 mmol/L Anion Gap 10.0 mmol/L Blood Urea Nitrogen 68 mg/dl Creatinine 3.10 mg/dl Est Creatinine Clear Calc Drug Dose 25.5 ml/min Estimated GFR () 20.6 Estimated GFR (Non- 17.8 BUN/Creatinine Ratio 21.9 Random Glucose 147 mg/dl Calcium Level 9.2 mg/dl Magnesium Level 2.5 mg/dl Bedside Glucose 160 mg/dl
[2016-07-30 12:26] VITALS: BP 110/73; PULSE 74; TEMP 36.5; O2SAT 95
[2016-07-30] MEDS: HYDROCODONE/ACETAMOPHEN 5/325MG TAB PO PRN ×2 (13:43→22:31)
[2016-07-30 15:38] VITALS: BP 125/77; PULSE 76; TEMP 36.6; O2SAT 96
--- NOTE | 2016-07-30 17:26 | Nephrology Consultation ---
Nephrology Consultation Date of Consultation: July 30, 2016. Attending Physician: Dr Nails Requesting Physician: Dr Nails Reason for Consultation: DWAYNE on CKD History of Present Illness 40 year old female admitted 07/27 from [facility] w/ c/o substernal chest pain radiating to her back, attributed at this time to postoperative/musculoskeletal causes. She was just d/c from [facility] [place] where she had been admitted 07/16 for elective 4VCABG same date. Her postoperative course was complicated by pressor- dependent hypotension; she had acute on chronic kidney injury attributed to ischemic ATN w/ a peak creatinine of 4.6 on 07/20 and d/c creatinine of 3.5 w/ K 3.5 (sic) and hgb 8.1. Other PMH includes DM1 since age 8, CKD 3 w/ baseline creatinine 1.5 (no outpt renal care), HTN, HL, C diff 01/2016, PAD, sleep apnea on 2L hs, remote R calcaneal fracture (wears brace chronically) and ARDS remotely. Cardiology has of course been following since admission. Her TTE on presentation showed no WMA and only mildly diminished LV systolic dysfunction; no clinically significant troponin elevations or concern at this time for PE. She does have post op a fib controlled on amiodarone. She is for d/c back to [facility] soon on levaquin and w/ cardiology managing diuretics; for daily bmp/ cbc while there. Her creatinine on admission was 3.3; her creatinine today is 3/1. K has been maintained in the 3's, currently on 20 mEq daily. Her diuretics are currently on hold. her sats have been running in high 70s on RA. Past Medical/Surgical History Medical Problems: (1) Abnormal EKG Status: Acute (2) Acute chest pain Status: Acute (3) Anemia Status: Chronic (4) Elevated serum creatinine Status: Acute (5) Hypoxia Status: Acute Family History Diabetes mellitus FH: heart disease Hypertension Stroke F w/ ESRD on HD Social History Smoking Status: Never Smoker Alcohol Use: none Drug Use: none Marital Status: Housing Status: lives with significant other Occupation Status: disabled Allergies Coded Allergies: No Known Allergies (Unverified , 07/27/16) Medications Current Inpatient Medications Medications (Trade) Dose Ordered Sig/[place] Route Start Time Stop Time Status Last Admin Dose Admin Heparin Sodium (Porcine) (Heparin Sq 5000 Unit/0.5ml) 5,000 unit Q8 SQ 07/27/16 22:00 08/26/16 21:59 07/30/16 05:35 5,000 UNIT Acetaminophen (Tylenol Tab) 650 mg Q4H PRN PO 07/27/16 14:45 08/26/16 14:44 07/30/16 01:24 650 MG Ondansetron HCl (Zofran Inj) 4 mg Q6H PRN IV 07/27/16 14:45 08/26/16 14:44 Nitroglycerin (Nitrostat Tab) 0.4 mg UD PRN SL 07/27/16 14:45 08/26/16 14:44 Amiodarone HCl (Cordarone Tab) 200 mg BID PO 07/27/16 21:00 08/26/16 20:59 07/29/16 20:13 200 MG Aspirin (Ecotrin Tab) 162 mg DAILY PO 07/28/16 09:00 08/27/16 08:59 07/29/16 07:42 162 MG Atorvastatin Calcium (Lipitor Tab) 80 mg QPM PO 07/27/16 21:00 08/26/16 20:59 07/29/16 20:12 80 MG Cyclobenzaprine HCl (Flexeril Tab) 5 mg BID PRN PO 07/27/16 15:00 08/26/16 14:59 07/29/16 22:13 5 MG Dicyclomine HCl (Bentyl Tab) 20 mg TID PO 07/27/16 21:00 08/26/16 20:59 07/29/16 20:12 20 MG Docusate Sodium (coLACE CAP) 100 mg BID PO 07/27/16 21:00 08/26/16 20:59 07/29/16 20:12 100 MG Ferrous Sulfate (Feosol Tab) 325 mg BID PO 07/27/16 21:00 08/26/16 20:59 07/29/16 20:11 325 MG Fluticasone Propionate (Flonase Nasal [place]) 1 sprays DAILY PAVEL 07/28/16 09:00 08/27/16 08:59 07/29/16 07:42 1 SPRAYS Prenat Multivit/ [employer] [place]/Iron/Folic Ac ( Vitamin Tab) 1 tab DAILY PO 07/28/16 09:00 08/27/16 08:59 07/29/16 07:43 1 TAB Pregabalin (Lyrica Cap) 150 mg BID PO 07/27/16 21:00 08/26/16 20:59 07/29/16 20:10 150 MG Tramadol HCl (Ultram Tab) 50 mg Q4H PRN PO 07/27/16 15:00 08/26/16 14:59 07/29/16 22:13 50 MG Venlafaxine HCl (effeXOR EXTENDED REL CAP) 150 mg QPM PO 07/27/16 21:00 08/26/16 20:59 07/29/16 20:11 150 MG Venlafaxine HCl (effeXOR EXTENDED REL CAP) 37.5 mg QPM PO 07/27/16 21:00 08/26/16 20:59 07/29/16 20:11 37.5 MG Pantoprazole Sodium (Protonix Tab) 40 mg DAILY PO 07/28/16 09:00 08/27/16 08:59 07/29/16 07:42 40 MG Polyethylene (Miralax Powder Packet) 17 gm DAILY PO 07/28/16 09:00 08/27/16 08:59 Potassium Chloride (Klor-Con Tab) 20 meq QAM PO 07/28/16 09:00 08/27/16 08:59 07/29/16 07:43 20 MEQ Insulin Aspart (novoLOG ASPART) SLIDING SCALE If C... ACHS SC 07/27/16 17:00 08/26/16 16:59 07/29/16 17:30 8 UNITS Glucose (Glucose 40% Gel) 15-30 GRAMS 15 GRAMS... UD PRN PO 07/27/16 15:00 08/26/16 14:59 Glucose (Glucose Chew Tab) 4-8 Tablets 4 Tabl... UD PRN PO 07/27/16 15:00 08/26/16 14:59 Dextrose (Dextrose 50% 50ML Syringe) 25-50ML OF 50% DW IV FOR... UD PRN IV 07/27/16 15:00 08/26/16 14:59 Glucagon (Glucagon Inj) 1 mg UD PRN SQ 07/27/16 15:00 08/26/16 14:59 Piperacillin Sod/ Tazobactam Sod (Consult) 1 ea UD PRN N/A 07/27/16 15:30 08/26/16 15:29 Insulin Glargine 15 unit 15 unit DAILY SC 07/28/16 09:00 08/27/16 08:59 07/29/16 07:54 15 UNIT Piperacillin Sod/ Tazobactam Sod/ Dextrose (Zosyn Iv/D5 100ml) 115 ml @ 28.75 mls/ hr Q8 IV 07/28/16 14:00 08/04/16 13:59 07/30/16 05:34 28.75 MLS/HR Home Meds and Scripts Medications Dose Route/Sig Max Daily Dose Days Date Category Dose Instructions Levaquin (Levofloxacin) 500 Mg Tab 250 Mg PO DAILY 4 07/29/16 Rx Lantus Solostar (Insulin Glargine) 100 Unit/Ml Inj 15 Units SC HS 15 07/29/16 Rx Ferrous Sulfate 325 Mg Tab 325 Mg PO BID 07/27/16 Reported Prilosec (Omeprazole) 20 Mg Cap 20 Mg PO DAILY 07/27/16 Reported Ultram (Tramadol HCl) 50 Mg Tab 50 Mg PO Q4H PRN 07/27/16 Reported Effexor Xr (Venlafaxine Hcl) 150 Mg Cap 150 Mg PO QPM 30 07/27/16 Reported Venlafaxine Extended Rel (Venlafaxine Hcl) 37.5 Mg Cap 37.5 Mg PO QPM 07/27/16 Reported Vitamin (Prenat Multivit/[place]/Iron/Folic Ac) Tab 1 Tab PO DAILY 07/27/16 Reported Lyrica (Pregabalin) 75 Mg Cap 150 Mg PO BID 07/27/16 Reported Miralax (Polyethylene Glycol 3350) 1 Pow Pow 17 Gm PO DAILY 07/27/16 Reported Novolog Flexpen (Insulin Aspart) 100 Units/Ml Inj 1 Unit SQ ACHS 07/27/16 Reported uses sliding scale--sugar 70-130, use 0 units, sugar 131-180 use 2 units, sugar 181-240, use 4 units, sugar 241-300, use 6 units, sugar 301-350 use 8 units, 351-400 use 10 units, and over 400 give 12 units and call doctor Heparin Sodium (Heparin Sodium (Porcine)) 5,000 Unit/Ml Inj 5,000 Unit SQ Q8 07/27/16 Reported Flonase Allergy Relief (Fluticasone Propionate (Nasal)) 50 Mcg/Act Spr 1 [place] PAVEL DAILY 07/27/16 Reported Docusate Sodium 100 Mg Cap 100 Mg PO BID 7 07/27/16 Reported Dicyclomine Hcl 20 Mg Tab 20 Mg PO TID 10 07/27/16 Reported Flexeril (Cyclobenzaprine Hcl) 5 Mg Tab 5 Mg PO BID 07/27/16 Reported PRN Lipitor (Atorvastatin) 40 Mg Tab 80 Mg PO QPM 07/27/16 Reported Aspirin Ec (Aspirin) 81 Mg Tab 162 Mg PO DAILY 07/27/16 Reported Cordarone (Amiodarone Hcl) 200 Mg Tab 200 Mg PO BID 07/27/16 Reported Review of Systems Constitutional: + fatigue ("I feel like I've been hit by a truck"), + weakness , No fever, No weight loss Eyes: No worsening of vision ENT: No hearing loss Respiratory: + dyspnea at rest, + dyspnea on exertion, No cough Cardiac: + chest pain, + orthopnea, No edema, No palpitations Abdomen: No constipation, No diarrhea, No nausea, No pain, No vomiting Musculoskeletal: No joint pain, No muscle pain Female : No dysuria, No hematuria, No urinary frequency Neuro: + balance problems (chronic), + weakness (generalized), No memory loss Psych: No anxiety, No depression symptoms Heme: No abnormal bleeding/bruising Endo: + fatigue Skin: No itch, No new/changing skin lesions, No rash Physical Exam Date Time Temp Pulse Resp B/P Pulse Ox O2 Delivery O2 Flow Rate FiO2 07/30/16 08:02 36.5 75 20 146/76 97 Nasal Cannula 3.0 07/30/16 04:15 36.8 80 18 149/81 98 3.0 07/30/16 04:00 Nasal Cannula 3.0 07/29/16 23:59 Nasal Cannula 3.0 07/29/16 23:58 36.7 73 18 124/76 97 2.0 07/29/16 20:17 Nasal Cannula 3.0 07/29/16 20:00 36.3 74 18 114/68 95 Nasal Cannula 3.0 07/29/16 16:00 Nasal Cannula 3.0 07/29/16 15:31 91 Nasal Cannula 3.0 07/29/16 15:30 36.6 71 18 97/51 79 Room Air 07/29/16 12:22 36.3 66 18 131/77 93 Nasal Cannula 3.0 07/29/16 12:00 Nasal Cannula 3.0 24-Hour Column 07/30/16 08:00 Intake Total 914 ml Output Total 1600 ml Balance -686 ml General Appearance: WD/WN, no apparent distress, + obese (on 02NC oriented x 3) Eyes: EOMI ENT: hearing grossly normal Neck: supple Respiratory/Chest: lungs clear, no respiratory distress, + decreased breath sounds Cardiovascular: regular rate, rhythm, + pertinent finding (trace pedal edema) Abdomen: normal bowel sounds, non tender, soft (no genao) Extremities: non-tender, normal inspection, + pedal edema Neurologic/Psych: alert, normal mood/affect, oriented x 3 Skin: no jaundice, warm/dry, no rash, + pallor Diagnostics Last 24 Hours Test 07/29/16 10:41 07/29/16 14:07 07/29/16 16:02 07/29/16 20:19 Bedside Glucose 225 mg/dl 207 mg/dl 70 mg/dl Hemoglobin 8.3 g/dL Hematocrit 25.9 % Test 07/29/16 22:38 07/30/16 05:53 07/30/16 06:25 Bedside Glucose 166 mg/dl 160 mg/dl White Blood Count 11.93 K/uL Red Blood Count 2.68 M/uL Hemoglobin 8.2 g/dL Hematocrit 26.0 % Mean Corpuscular Volume 97.0 fL Mean Corpuscular Hemoglobin 30.6 pg Mean Corpuscular Hemoglobin Concent 31.5 g/dl RDW Standard Deviation 58.2 fL RDW Coefficient of Variation 16.7 % Platelet Count 413 K/uL Mean Platelet Volume 9.1 fL Sodium Level 138 mmol/L Potassium Level 4.0 mmol/L Chloride Level 94 mmol/L Carbon Dioxide Level 34 mmol/L Anion Gap 10.0 mmol/L Blood Urea Nitrogen 68 mg/dl Creatinine 3.10 mg/dl Est Creatinine Clear Calc Drug Dose 25.5 ml/min Estimated GFR () 20.6 Estimated GFR (Non- 17.8 BUN/Creatinine Ratio 21.9 Random Glucose 147 mg/dl Calcium Level 9.2 mg/dl Magnesium Level 2.5 mg/dl Diagnostic Radiology: CXR today possible LLL pna; better bibasilar congestion Assessment & Plan 40 y/o F w/ DWAYNE on CKD (baseline creatinine 1.5) attributed to ischemic ATN after prolonged [facility] hospitalization 07/16-07/26 after 4vCABG 07/16 w/ peak creatinine 4.6; slowly recovering now w/ creatinine currently 3.1. No dialysis has been needed. Other pmh includes DM1, PAD, HTN, HL, [place] on 2L hs, chronic anemia. -agree w/ plan to check daily bmp, cbc; would check mag/phos once weekly <> will add to labs -will add iron studies, retic count to labs>may benefit from iv iron -cont strict I/O -current K dose appropriate -defer diuretics to cardiology; do not believe she needs IVF currently -needs to est w/ outpt nephrology at hospital d/c Appreciate c/s; will follow with you.
[2016-07-30 19:37] VITALS: BP 139/84; PULSE 73; TEMP 36.8; O2SAT 98
[2016-07-30] MEDS: VENLAFAXINE HCL XR 150 MG CAPXR PO SCH (22:15)
[2016-07-30] MEDS: ATORVASTATIN 40 MG TAB PO SCH (22:15)
[2016-07-30] MEDS: VENLAFAXINE HCL XR 37.5 MG CAPXR PO SCH ×2 (22:17→22:24)
[2016-07-31] VITALS (8 sets, daily range): BP systolic 104–139; BP diastolic 59–84; PULSE 69–85; TEMP 36.5–36.7; O2SAT 93–99
[2016-07-31] MEDS: TRAMADOL HCL 50 MG TAB PO PRN (02:43)
[2016-07-31] MEDS: PIPERACILL/TAZOBAC IV 3.375 GM in DEXTROSE 5% 100ML IV SCH (06:01)
[2016-07-31] MEDS: HEPARIN SOD 5000 UNIT/0.5 ML CARP SQ SCH ×3 (06:01→22:48)
[2016-07-31 06:37] LABS: HEMATOCRIT 26.7 % (37-47); MEAN CELL VOLUME 98.2 fL (80-100); MEAN CORPUSCULAR HEMOGLOBIN 30.5 pg (25-34); MEAN CORPUSCULAR HGB CONC 31.1 g/dl (32-36); MEAN PLATELET VOLUME 9.2 fL (7.4-10.4); PLATELET COUNT 413 K/uL (130-400); RED BLOOD COUNT 2.72 M/uL (4.2-5.4); WHITE BLOOD COUNT 11.99 K/uL (4.8-10.8)
[2016-07-31 07:11] LABS: BUN/CREATININE RATIO 19.6 (10-20); CALCIUM 9.1 mg/dl (8.5-10.1); CREATININE 2.9 mg/dl (0.60-1.20); MAGNESIUM 2.5 mg/dl (1.8-2.4); POTASSIUM 4.2 mmol/L (3.5-5.1)
[2016-07-31 07:13] LABS: PHOSPHORUS 4.2 mg/dl (2.5-4.9)
[2016-07-31] MEDS: HYDROCODONE/ACETAMOPHEN 5/325MG TAB PO PRN (07:57)
[2016-07-31] MEDS: FLUTICASONE PROPIONATE NA SPR 16 GM BTL NAE SCH (07:57)
[2016-07-31] MEDS: PANTOprazole SOD 40 MG TAB PO SCH (07:58)
[2016-07-31] MEDS: ASPIRIN 81 MG ECTAB PO SCH (07:58)
[2016-07-31] MEDS: POTASSIUM CHLORIDE 20 MEQ TABCR PO SCH (07:59)
[2016-07-31] MEDS: AMIODARONE 200 MG TAB PO SCH ×2 (07:59→22:39)
[2016-07-31] MEDS: DICYCLOMINE HCL 20 MG TAB PO SCH ×3 (07:59→22:39)
[2016-07-31] MEDS: FERROUS SULFATE 325 MG TAB PO SCH ×2 (08:00→22:40)
[2016-07-31] MEDS: PRENATAL VITAMIN TAB PO SCH (08:00)
[2016-07-31] MEDS: VENLAFAXINE HCL XR 37.5 MG CAPXR PO SCH (08:00)
[2016-07-31] MEDS: POLYETHYLENE (MIRALAX) 17 GM PACK PO SCH (08:02)
[2016-07-31] MEDS: PREGABALIN 75 MG CAP PO SCH ×2 (08:02→22:44)
[2016-07-31] MEDS: DOCUSATE SODIUM 100 MG CAP PO SCH ×2 (08:02→22:40)
[2016-07-31] MEDS: INSULIN GLARGINE SOLOSTAR 100 UNITS/ML 3 ML PEN SC SCH (08:08)
[2016-07-31] MEDS: INSULIN ASPART 100 UNITS/ML 3 ML PEN SC SCH ×4 (08:08→20:29)
--- NOTE | 2016-07-31 09:18 | Progress Note ---
Subjective Date of Service: July 31, 2016. Subjective Pt evaluation today including: conversation w/ patient, physical exam, lab review, review of studies, conversation w/ database consultant, review of inpatient medication list Saw/examined the patient in room 208 She is doing well today, no significant chest pain/pressure today No shortness of breath or cough, no weakness Problem List Medical Problems: (1) Abnormal EKG Status: Acute (2) Acute chest pain Status: Acute (3) Anemia Status: Chronic (4) Elevated serum creatinine Status: Acute (5) Hypoxia Status: Acute Review of Systems Constitutional: No chills, No fever, No weakness Respiratory: No cough, No shortness of breath, No sputum Cardiac: No chest pain, No edema, No palpitations Abdomen: No diarrhea, No nausea, No pain, No vomiting Medications Current Inpatient Medications Medications (Trade) Dose Ordered Sig/Stewart Route Start Time Stop Time Status Last Admin Dose Admin Heparin Sodium (Porcine) (Heparin Sq 5000 Unit/0.5ml) 5,000 unit Q8 SQ 07/27/16 22:00 08/26/16 21:59 07/31/16 06:01 5,000 UNIT Acetaminophen (Tylenol Tab) 650 mg Q4H PRN PO 07/27/16 14:45 08/26/16 14:44 07/30/16 01:24 650 MG Ondansetron HCl (Zofran Inj) 4 mg Q6H PRN IV 07/27/16 14:45 08/26/16 14:44 Nitroglycerin (Nitrostat Tab) 0.4 mg UD PRN SL 07/27/16 14:45 08/26/16 14:44 Amiodarone HCl (Cordarone Tab) 200 mg BID PO 07/27/16 21:00 08/26/16 20:59 07/31/16 07:59 200 MG Aspirin (Ecotrin Tab) 162 mg DAILY PO 07/28/16 09:00 08/27/16 08:59 07/31/16 07:58 162 MG Atorvastatin Calcium (Lipitor Tab) 80 mg QPM PO 07/27/16 21:00 08/26/16 20:59 07/30/16 22:15 80 MG Cyclobenzaprine HCl (Flexeril Tab) 5 mg BID PRN PO 07/27/16 15:00 08/26/16 14:59 07/29/16 22:13 5 MG Dicyclomine HCl (Bentyl Tab) 20 mg TID PO 07/27/16 21:00 08/26/16 20:59 07/31/16 07:59 20 MG Docusate Sodium (coLACE CAP) 100 mg BID PO 07/27/16 21:00 08/26/16 20:59 07/30/16 22:16 100 MG Ferrous Sulfate (Feosol Tab) 325 mg BID PO 07/27/16 21:00 08/26/16 20:59 07/31/16 08:00 325 MG Fluticasone Propionate (Flonase Nasal [place]) 1 sprays DAILY PAVEL 07/28/16 09:00 08/27/16 08:59 07/31/16 07:57 1 SPRAYS Prenat Multivit/ [place]/Iron/Folic Ac ( Vitamin Tab) 1 tab DAILY PO 07/28/16 09:00 08/27/16 08:59 07/31/16 08:00 1 TAB Pregabalin (Lyrica Cap) 150 mg BID PO 07/27/16 21:00 08/26/16 20:59 07/31/16 08:02 150 MG Tramadol HCl (Ultram Tab) 50 mg Q4H PRN PO 07/27/16 15:00 08/26/16 14:59 07/31/16 02:43 50 MG Venlafaxine HCl (effeXOR EXTENDED REL CAP) 150 mg QPM PO 07/27/16 21:00 08/26/16 20:59 07/30/16 22:15 150 MG Pantoprazole Sodium (Protonix Tab) 40 mg DAILY PO 07/28/16 09:00 08/27/16 08:59 07/31/16 07:58 40 MG Polyethylene (Miralax Powder Packet) 17 gm DAILY PO 07/28/16 09:00 08/27/16 08:59 Potassium Chloride (Klor-Con Tab) 20 meq QAM PO 07/28/16 09:00 08/27/16 08:59 07/31/16 07:59 20 MEQ Insulin Aspart (novoLOG ASPART) SLIDING SCALE If C... ACHS SC 07/27/16 17:00 08/26/16 16:59 07/31/16 08:08 5 UNITS Glucose (Glucose 40% Gel) 15-30 GRAMS 15 GRAMS... UD PRN PO 07/27/16 15:00 08/26/16 14:59 Glucose (Glucose Chew Tab) 4-8 Tablets 4 Tabl... UD PRN PO 07/27/16 15:00 08/26/16 14:59 Dextrose (Dextrose 50% 50ML Syringe) 25-50ML OF 50% DW IV FOR... UD PRN IV 07/27/16 15:00 08/26/16 14:59 Glucagon (Glucagon Inj) 1 mg UD PRN SQ 07/27/16 15:00 08/26/16 14:59 Piperacillin Sod/ Tazobactam Sod (Consult) 1 ea UD PRN N/A 07/27/16 15:30 08/26/16 15:29 Insulin Glargine 15 unit 15 unit DAILY SC 07/28/16 09:00 08/27/16 08:59 07/31/16 08:08 15 UNIT Piperacillin Sod/ Tazobactam Sod/ Dextrose (Zosyn Iv/D5 100ml) 115 ml @ 28.75 mls/ hr Q8 IV 07/28/16 14:00 08/04/16 13:59 07/31/16 06:01 28.75 MLS/HR Acetaminophen/ Hydrocodone Bitart ([place] 5/325 Tab) 1 tab Q4 PRN PO 07/30/16 12:45 08/13/16 12:44 07/31/16 07:57 1 TAB Venlafaxine HCl (effeXOR EXTENDED REL CAP) 37.5 mg QAM PO 07/31/16 09:00 08/30/16 08:59 07/31/16 08:00 37.5 MG Objective Vital Signs Date Time Temp Pulse Resp B/P Pulse Ox O2 Delivery O2 Flow Rate FiO2 07/31/16 08:32 36.7 72 20 124/80 98 Nasal Cannula 3.0 07/31/16 04:06 36.6 69 19 111/59 96 Nasal Cannula 3.0 07/31/16 04:00 Nasal Cannula 3.0 07/31/16 00:09 36.7 72 19 104/71 98 Nasal Cannula 3.0 07/31/16 00:00 Nasal Cannula 3.0 07/30/16 20:00 Nasal Cannula 3.0 07/30/16 19:37 36.8 73 18 139/84 98 Nasal Cannula 3.0 07/30/16 16:00 Nasal Cannula 3.0 07/30/16 15:38 36.6 76 20 125/77 96 Nasal Cannula 3.0 07/30/16 12:26 36.5 74 20 110/73 95 Nasal Cannula 3.0 07/30/16 12:00 Nasal Cannula 3.0 Physical Exam General Appearance: no apparent distress Respiratory/Chest: lungs clear, normal breath sounds, no respiratory distress, no accessory muscle use Cardiovascular: regular rate, rhythm, no edema, no murmur Abdomen: normal bowel sounds, non tender, soft Extremities: normal inspection, no pedal edema Neurologic/Psychiatric: no motor/sensory deficits, alert, normal mood/affect Skin: normal color Laboratory Results Last 24 Hours Test 07/30/16 11:34 07/30/16 16:28 07/30/16 20:35 07/31/16 06:06 Bedside Glucose 193 mg/dl 205 mg/dl 179 mg/dl White Blood Count 11.99 K/uL Red Blood Count 2.72 M/uL Hemoglobin 8.3 g/dL Hematocrit 26.7 % Mean Corpuscular Volume 98.2 fL Mean Corpuscular Hemoglobin 30.5 pg Mean Corpuscular Hemoglobin Concent 31.1 g/dl RDW Standard Deviation 59.4 fL RDW Coefficient of Variation 16.6 % Platelet Count 413 K/uL Mean Platelet Volume 9.2 fL Absolute Reticulocyte Count 0.11 10^6/uL Percent Reticulocyte Count 3.8 % Sodium Level 139 mmol/L Potassium Level 4.2 mmol/L Chloride Level 96 mmol/L Carbon Dioxide Level 38 mmol/L Anion Gap 5.0 mmol/L Blood Urea Nitrogen 57 mg/dl Creatinine 2.90 mg/dl Est Creatinine Clear Calc Drug Dose 27.6 ml/min Estimated GFR () 22.4 Estimated GFR (Non- 19.3 BUN/Creatinine Ratio 19.6 Random Glucose 188 mg/dl Calcium Level 9.1 mg/dl Phosphorus Level 4.2 mg/dl Magnesium Level 2.5 mg/dl Iron Level 61 mcg/dl Total Iron Binding Capacity 268 mcg/dl Transferrin 215 mg/dl Transferrin % Saturation 20 % Test 07/31/16 06:53 Bedside Glucose 198 mg/dl Assessment and Plan This is a 40 year old female with recent CABG x4 at [facility] on 07/16, post- operative atrial fibrillation, ischemic cardiomyopathy and reduced LVEF presents with L sided chest pain Acute Kidney Injury superimposed on CKD stage 3 07/31 appreciate nephrology input this is likely ATN creatinine down to 2.9 no role for IVFs at this time K, Mg, Phos are all wnl will d/c to [facility] if okay with nephrology today 07/30 creatinine up to > 3.0 diuretics have been held since she presented at [facility] IVFs were given gently (due to her systolic dysfunction) may need more fluid? nephrology consulted for further input 07/29 slight improvement in kidney function 07/28 creatinine on admission here was > 3.0 likely due to diuretics - hold diuretics start diet, and IVFs x 1L Chest Pain in the setting of recent CABG x4 07/30 chest wall tenderness continue aspirin, statin 07/29 PT/OT, plan to ambulate chest wall tenderness continue aspirin, statin, holding diuretics 07/28 bypass done at [place] on 07/16 recently discharged to [facility] on 07/26 presented to [facility] on 07/27 with chest pain attempted transfer back to tertiary care center - refused by physician this pain seems more like a chest wall tenderness cardiac enzymes are elevated, though expectedly so, due to recent surgery enzymes are trending down echo performed and LVEF improved to around 45-50% will continue aspirin & statin at this time any other input from cardiology appreciated Possible Post-operative Pneumonia 07/30 continue Zosyn for now 07/29 repeat CXR done, possible pneumonia noted will continue Zosyn for now, switch to Levaquin on discharge for a total of 7 days repeat CXR in one month 07/28 CXR - L lung base opacity WBC elevated ~ 14k on admission, down to 12k started on Zosyn + Vanco - due to recent admission MRSA swab negative - stopped Vanco continue Zosyn for now Hypoxia hypoxia on admission; possibly secondary to pneumonia? V/Q scan - low probability for acute PE has been requiring 2L of O2 at [facility] currently back to 2L hold diuretics Anemia 07/29 H/H remains around the 8.0-8.5 range may need to transfuse one unit (recent hx. of CABG) 07/28 H/H ~ 8.0 likely post-operative anemia continue feosol will recheck H/H in 6 hours, if no improvement, will transfuse PRBCs Ischemic Cardiomyopathy Systolic CHF LVEF ~ 45-50%, which is improved from previous echo will stop diuretics at this time due to dehydration - was taking Lasix 80mg + Metolazone may need to decrease dose as outpatient Type 1 Diabetes HA1c = 5.8% well controlled diabetic diet continue Lantus and sliding scale Post-operative Atrial Fibrillation currently on Amiodarone NSR with 1st degree block on EKG Peripheral Neuropathy cont. Lyrica GERD -continue PPI Depression cont. Effexor DVT ppx subq heparin FULL CODE
--- NOTE | 2016-07-31 09:24 | CARDIOLOGY PROGRESS NOTE ---
DATE: 07/31/2016 DATE: 07/31/2016. FOLLOW-UP VISIT SUBJECTIVE: This 40-year-old female with a history of early atherosclerotic vascular disease who is status post CABG and was discharged from [facility] to [facility]. She was having musculoskeletal postoperative pain and transferred to the hospital. She had an uneventful night. She is receiving physical therapy here. OBJECTIVE: GENERAL: She is alert and oriented, no acute distress. VITAL SIGNS: Blood pressure is 110/60, pulse is regular at 70. She is afebrile. HEAD, EYES, EARS, NOSE, AND THROAT: She is normocephalic. Pupils are equal and reactive to light. Extraocular muscles are intact bilaterally. NECK: The neck veins are flat. Carotids have good upstrokes bilaterally without bruits. Thyroid is nonpalpable. RESPIRATORY: Breath sounds equal bilaterally and clear to auscultation. CARDIOVASCULAR: Heart has a regular rhythm. Normal S1, S2. No S3, S4. No cardiac rubs or murmurs. GASTROINTESTINAL: Abdomen is soft, nontender without organomegaly. EXTREMITIES: Free of edema, digit clubbing, or cyanosis. NEUROLOGIC: Grossly intact. SKIN: Warm to touch. LYMPH NODES: Negative to palpation. LABORATORY DATA: Hemoglobin is 8.3. Creatinine is 2.9. Potassium is 4.2. IMPRESSIONS: 1. Postoperative chest wall pain. 2. Coronary artery bypass surgery. 3. Acute on chronic renal failure. 4. Type 1 diabetes mellitus. RECOMMENDATIONS: From a cardiac standpoint, the patient is stable and can return to [facility] when appropriate. I recommended that she utilize her incentive spirometry and physical therapy continue. We will see her after she is discharged from [facility].
[2016-07-31] MEDS ORDERED: LEVOFLOXACIN 750 MG TAB PO SCH (14:00)
[2016-07-31] MEDS ORDERED: LEVO-459 PO (14:02)
--- NOTE | 2016-07-31 14:04 | Discharge Summary ---
Discharge Summary Date of Service July 31, 2016. Discharge Summary Admission Date: July 27, 2016 at 14:36 Discharge Date: July 29, 2016 Discharge Disposition: Rehab Principal Diagnosis: Chest pain with recent CABG Community Acquired Pneumonia Acute Kidney Injury - ATN Medication Reconciliation New Medications: Levofloxacin (Levaquin) 500 Mg Tab 250 MG PO one for 1 Day, #1 TABS one time on 08/02 Changed Medications: Insulin Glargine (Lantus Solostar) 100 Unit/Ml Inj 15 UNITS SC HS for 15 Days, #1 PEN (Changed from: BID) Continued Medications: Amiodarone Hcl (Cordarone) 200 Mg Tab 200 MG PO BID, TAB Aspirin (Aspirin Ec) 81 Mg Tab 162 MG PO DAILY Atorvastatin (Lipitor) 40 Mg Tab 80 MG PO QPM, TAB Cyclobenzaprine Hcl (Flexeril) 5 Mg Tab 5 MG PO BID, TAB PRN Dicyclomine Hcl (Dicyclomine Hcl) 20 Mg Tab 20 MG PO TID for 10 Days, #30 TAB 1 Refill Docusate Sodium (Docusate Sodium) 100 Mg Cap 100 MG PO BID for 7 Days, #14 CAP Ferrous Sulfate (Ferrous Sulfate) 325 Mg Tab 325 MG PO BID Fluticasone Propionate (Nasal) (Flonase Allergy Relief) 50 Mcg/Act Spr 1 SPRAY PAVEL DAILY Heparin Sodium (Porcine) (Heparin Sodium) 5,000 Unit/Ml Inj 5000 UNIT SQ Q8 Insulin Aspart (Novolog Flexpen) 100 Units/Ml Inj 1 UNIT SQ ACHS uses sliding scale--sugar 70-130, use 0 units, sugar 131-180 use 2 units, sugar 181-240, use 4 units, sugar 241-300, use 6 units, sugar 301-350 use 8 units, 351-400 use 10 units, and over 400 give 12 units and call doctor Multivit/Min/Iron/Fol Ac/Pren ( Vitamin) Tab 1 TAB PO DAILY, TAB Omeprazole (Prilosec) 20 Mg Cap 20 MG PO DAILY, CAP Polyethylene Glycol 3350 (Miralax) 1 Pow Pow 17 GM PO DAILY, #255 GM Pregabalin (Lyrica) 75 Mg Cap 150 MG PO BID, CAP Tramadol (Ultram) 50 Mg Tab 50 MG PO Q4H PRN for Pain, TAB Venlafaxine Hcl (Venlafaxine Extended Rel) 37.5 Mg Cap 37.5 MG PO QPM, CAP Venlafaxine Hcl (Effexor Xr) 150 Mg Cap 150 MG PO QPM for 30 Days, CAP 2 Refills Discontinued Medications: Furosemide (Lasix) 80 Mg Tab 80 MG PO DAILY, TAB Metolazone (Zaroxolyn) 5 Mg Tab 5 MG PO DAILY, TAB Potassium Ext Rel (Klor-Con) 20 Meq Tabcr 10 MEQ PO QAM, TAB Admission Information HPI (per Admitting provider): Patient seen and examined. 40 year old female with complicated PMHx of CAD, DM1 , HTN, HLD, nocturnal hypoxia, CKD stage 3, and recent CABG x 4 on 07/16 presents to the ED from [facility] complaining of chest pain. Patient had a CABG x 4 on 07/16 at [facility] and was discharged last evening to [facility]. Hospital course had been complicated by DWAYNE. Patient reports that she has been having off and on left sided chest pain with radiation around the back to the left shoulder blade for several weeks. She states she had this pain prior to the CABG and has continued since. She reports it can last anywhere from 20 minutes to several hours and then resolves spontaneously. She rates the pain as a 7/10. She reports she had been having this pain while in [facility] but did not tell anyone. She had this pain again today while at [facility] and was referred to the ED for further evaluation. She denies fevers, chills, URI symptoms, SOB, palpitations, nausea, vomiting, diarrhea, dysuria, calf pain and edema. In the ED patient was hypoxic but otherwise VS were stable, a STAT Echo was completed, troponin was 0.6, WBC count was 14K, Hgb is 8.2. She is currently resting comfortably pain free. Differential diagnosis include PE d/t patient's DWAYNE on CKD a CTA could not be completed. Ddimer and doppler US were pending at time of admission. Case was discussed with [facility] by ED physician and per ED physician [facility] was not willing to accept the patient. She will be admitted for further workup and treatment. Physical Exam (per Admitting): General Appearance: + pertinent finding (WD/WN 40 year old female lying in bed in [facility] ) Head: normocephalic, atraumatic Eyes: PERRL, EOMI, sclerae normal ENT: hearing grossly normal, pharynx normal Neck: supple, no JVD Respiratory/Chest: lungs clear, normal breath sounds, no respiratory distress, no accessory muscle use, + pertinent finding (chest tender to palpation, well healing sternal incision s/p CABG ) Cardiovascular: regular rate, rhythm, no edema, no gallop, no JVD, no murmur , normal peripheral pulses Abdomen/GI: normal bowel sounds, non tender, soft Back: normal inspection, no muscle spasm Extremities/Musculoskelatal: no calf tenderness, normal capillary refill, no pedal edema Neurologic/Psych: alert, oriented x 3, + pertinent finding (no focal deficits noted on gross exam ) Skin: normal color, warm/dry, no rash Lymphatic: no adenopathy Hospital Course This is a 40 year old female with recent CABG x4 at [facility] on 07/16, post- operative atrial fibrillation, ischemic cardiomyopathy and reduced LVEF presents with L sided chest pain Chest Pain in the setting of recent CABG x4 07/29 PT/OT, plan to ambulate chest wall tenderness continue aspirin, statin, holding diuretics 07/28 bypass done at [place] on 07/16 recently discharged to [facility] on 07/26 presented to [facility] on 07/27 with chest pain attempted transfer back to tertiary care center - refused by physician this pain seems more like a chest wall tenderness cardiac enzymes are elevated, though expectedly so, due to recent surgery enzymes are trending down echo performed and LVEF improved to around 45-50% will continue aspirin & statin at this time any other input from cardiology appreciated Possible Post-operative Pneumonia 07/29 repeat CXR done, possible pneumonia noted will continue Zosyn for now, switch to Levaquin on discharge for a total of 7 days repeat CXR in one month 07/28 CXR - L lung base opacity WBC elevated ~ 14k on admission, down to 12k started on Zosyn + Vanco - due to recent admission MRSA swab negative - stopped Vanco continue Zosyn for now Hypoxia hypoxia on admission; possibly secondary to pneumonia? V/Q scan - low probability for acute PE has been requiring 2L of O2 at [facility] currently back to 2L hold diuretics Anemia 07/29 H/H remains around the 8.0-8.5 range may need to transfuse one unit (recent hx. of CABG) 07/28 H/H ~ 8.0 likely post-operative anemia continue feosol will recheck H/H in 6 hours, if no improvement, will transfuse PRBCs Ischemic Cardiomyopathy Systolic CHF LVEF ~ 45-50%, which is improved from previous echo will stop diuretics at this time due to dehydration - was taking Lasix 80mg + Metolazone may need to decrease dose as outpatient Acute Kidney Injury superimposed on CKD stage 3 07/29 slight improvement in kidney function 07/28 creatinine on admission here was > 3.0 likely due to diuretics - hold diuretics start diet, and IVFs x 1L Type 1 Diabetes HA1c = 5.8% well controlled diabetic diet continue Lantus and sliding scale Post-operative Atrial Fibrillation currently on Amiodarone NSR with 1st degree block on EKG Peripheral Neuropathy cont. Lyrica GERD -continue PPI Depression cont. Effexor DVT ppx subq heparin FULL CODE Total time spent on discharge = 40 minutes This includes examination of the patient, discharge planning, medication reconciliation, and communication with other providers. Discharge Instructions Please follow-up with primary care physician and cardiology after stay at [facility] * Should get a daily CBC and BMP; Hgb should be monitored and kept above 8 * Diuretics are held (Lasix and Metolazone) - kidney function should be monitored daily until creatinine back to baseline - f/u with cardiology regarding diuretics * Given Levaquin for pneumonia - repeat CXR in 2-3 weeks
[2016-07-31] MEDS: ATORVASTATIN 40 MG TAB PO SCH (22:37)
[2016-07-31] MEDS: VENLAFAXINE HCL XR 150 MG CAPXR PO SCH (22:40)
[2016-08-01] VITALS: BP 105/71; PULSE 71; TEMP 36.4; O2SAT 94
[2016-08-01] MEDS: HYDROCODONE/ACETAMOPHEN 5/325MG TAB PO PRN ×2 (03:34→09:53)
[2016-08-01] MEDS: HEPARIN SOD 5000 UNIT/0.5 ML CARP SQ SCH (06:37)
[2016-08-01 07:17] VITALS: BP 117/75; PULSE 80; TEMP 36.9; O2SAT 92
[2016-08-01 07:29] LABS: HEMATOCRIT 28.2 % (37-47); MEAN CELL VOLUME 97.6 fL (80-100); MEAN CORPUSCULAR HEMOGLOBIN 30.1 pg (25-34); MEAN CORPUSCULAR HGB CONC 30.9 g/dl (32-36); PLATELET COUNT 375 K/uL (130-400); RED BLOOD COUNT 2.89 M/uL (4.2-5.4); WHITE BLOOD COUNT 11.73 K/uL (4.8-10.8)
[2016-08-01 07:55] LABS: BUN/CREATININE RATIO 16.3 (10-20); CALCIUM 9.1 mg/dl (8.5-10.1); CREATININE 2.9 mg/dl (0.60-1.20); MAGNESIUM 2.3 mg/dl (1.8-2.4); POTASSIUM 4.3 mmol/L (3.5-5.1)
[2016-08-01] MEDS: DOCUSATE SODIUM 100 MG CAP PO SCH (08:00)
[2016-08-01] MEDS: POTASSIUM CHLORIDE 20 MEQ TABCR PO SCH (08:00)
[2016-08-01] MEDS: PREGABALIN 75 MG CAP PO SCH (08:00)
[2016-08-01] MEDS: PRENATAL VITAMIN TAB PO SCH (08:01)
[2016-08-01] MEDS: AMIODARONE 200 MG TAB PO SCH (08:01)
[2016-08-01] MEDS: PANTOprazole SOD 40 MG TAB PO SCH (08:01)
[2016-08-01] MEDS: FERROUS SULFATE 325 MG TAB PO SCH (08:02)
[2016-08-01] MEDS: POLYETHYLENE (MIRALAX) 17 GM PACK PO SCH (08:02)
[2016-08-01] MEDS: DICYCLOMINE HCL 20 MG TAB PO SCH (08:03)
[2016-08-01] MEDS: VENLAFAXINE HCL XR 37.5 MG CAPXR PO SCH (08:03)
[2016-08-01] MEDS: FLUTICASONE PROPIONATE NA SPR 16 GM BTL NAE SCH (08:03)
[2016-08-01] MEDS: ASPIRIN 81 MG ECTAB PO SCH (08:03)
[2016-08-01] MEDS: INSULIN ASPART 100 UNITS/ML 3 ML PEN SC SCH (08:09)
[2016-08-01] MEDS: INSULIN GLARGINE SOLOSTAR 100 UNITS/ML 3 ML PEN SC SCH (08:10)
--- NOTE | 2016-08-01 08:24 | Progress Note ---
Subjective Date of Service: August 01, 2016. Subjective Pt evaluation today including: conversation w/ patient, physical exam, lab review, review of studies, review of inpatient medication list Saw/examined the patient in room 255-2 today She is doing well, was about to be discharged yesterday, but due to no transportation, discharge planning delayed until today She denies any chest pain/shortness of breath, no other symptoms noted at this time; eating breakfast well Problem List Medical Problems: (1) Abnormal EKG Status: Acute (2) Acute chest pain Status: Acute (3) Anemia Status: Chronic (4) Elevated serum creatinine Status: Acute (5) Hypoxia Status: Acute Review of Systems Constitutional: No chills, No fever Respiratory: No cough, No shortness of breath, No sputum Cardiac: No chest pain, No edema, No palpitations Abdomen: No diarrhea, No nausea, No pain, No vomiting Medications Current Inpatient Medications Medications (Trade) Dose Ordered Sig/Stewart Route Start Time Stop Time Status Last Admin Dose Admin Heparin Sodium (Porcine) (Heparin Sq 5000 Unit/0.5ml) 5,000 unit Q8 SQ 07/27/16 22:00 08/26/16 21:59 08/01/16 06:37 5,000 UNIT Acetaminophen (Tylenol Tab) 650 mg Q4H PRN PO 07/27/16 14:45 08/26/16 14:44 07/30/16 01:24 650 MG Ondansetron HCl (Zofran Inj) 4 mg Q6H PRN IV 07/27/16 14:45 08/26/16 14:44 Nitroglycerin (Nitrostat Tab) 0.4 mg UD PRN SL 07/27/16 14:45 08/26/16 14:44 Amiodarone HCl (Cordarone Tab) 200 mg BID PO 07/27/16 21:00 08/26/16 20:59 08/01/16 08:01 200 MG Aspirin (Ecotrin Tab) 162 mg DAILY PO 07/28/16 09:00 08/27/16 08:59 08/01/16 08:03 162 MG Atorvastatin Calcium (Lipitor Tab) 80 mg QPM PO 07/27/16 21:00 08/26/16 20:59 07/31/16 22:37 80 MG Cyclobenzaprine HCl (Flexeril Tab) 5 mg BID PRN PO 07/27/16 15:00 08/26/16 14:59 07/29/16 22:13 5 MG Dicyclomine HCl (Bentyl Tab) 20 mg TID PO 07/27/16 21:00 08/26/16 20:59 08/01/16 08:03 20 MG Docusate Sodium (coLACE CAP) 100 mg BID PO 07/27/16 21:00 08/26/16 20:59 08/01/16 08:00 100 MG Ferrous Sulfate (Feosol Tab) 325 mg BID PO 07/27/16 21:00 08/26/16 20:59 08/01/16 08:02 325 MG Fluticasone Propionate (Flonase Nasal [place]) 1 sprays DAILY PAVEL 07/28/16 09:00 08/27/16 08:59 08/01/16 08:03 1 SPRAYS Prenat Multivit/ [place]/Iron/Folic Ac ( Vitamin Tab) 1 tab DAILY PO 07/28/16 09:00 08/27/16 08:59 08/01/16 08:01 1 TAB Pregabalin (Lyrica Cap) 150 mg BID PO 07/27/16 21:00 08/26/16 20:59 08/01/16 08:00 150 MG Tramadol HCl (Ultram Tab) 50 mg Q4H PRN PO 07/27/16 15:00 08/26/16 14:59 07/31/16 02:43 50 MG Venlafaxine HCl (effeXOR EXTENDED REL CAP) 150 mg QPM PO 07/27/16 21:00 08/26/16 20:59 07/31/16 22:40 150 MG Pantoprazole Sodium (Protonix Tab) 40 mg DAILY PO 07/28/16 09:00 08/27/16 08:59 08/01/16 08:01 40 MG Polyethylene (Miralax Powder Packet) 17 gm DAILY PO 07/28/16 09:00 08/27/16 08:59 Potassium Chloride (Klor-Con Tab) 20 meq QAM PO 07/28/16 09:00 08/27/16 08:59 08/01/16 08:00 20 MEQ Insulin Aspart (novoLOG ASPART) SLIDING SCALE If C... ACHS SC 07/27/16 17:00 08/26/16 16:59 08/01/16 08:09 6 UNITS Glucose (Glucose 40% Gel) 15-30 GRAMS 15 GRAMS... UD PRN PO 07/27/16 15:00 08/26/16 14:59 Glucose (Glucose Chew Tab) 4-8 Tablets 4 Tabl... UD PRN PO 07/27/16 15:00 08/26/16 14:59 Dextrose (Dextrose 50% 50ML Syringe) 25-50ML OF 50% DW IV FOR... UD PRN IV 07/27/16 15:00 08/26/16 14:59 Glucagon (Glucagon Inj) 1 mg UD PRN SQ 07/27/16 15:00 08/26/16 14:59 Insulin Glargine (Lantus Solostar Pen) 15 unit DAILY SC 07/28/16 09:00 08/27/16 08:59 08/01/16 08:10 15 UNIT Acetaminophen/ Hydrocodone Bitart ([place] 5/325 Tab) 1 tab Q4 PRN PO 07/30/16 12:45 08/13/16 12:44 08/01/16 03:34 1 TAB Venlafaxine HCl (effeXOR EXTENDED REL CAP) 37.5 mg QAM PO 07/31/16 09:00 08/30/16 08:59 08/01/16 08:03 37.5 MG Levofloxacin (Levaquin Tab) 750 mg Q48H PO 07/31/16 14:00 08/02/16 14:01 07/31/16 15:10 750 MG Objective Vital Signs Date Time Temp Pulse Resp B/P Pulse Ox O2 Delivery O2 Flow Rate FiO2 08/01/16 07:17 36.9 80 20 117/75 92 Nasal Cannula 1.0 08/01/16 00:00 36.4 71 20 105/71 94 2.0 08/01/16 00:00 Nasal Cannula 2.0 07/31/16 20:48 36.5 76 18 127/84 93 Nasal Cannula 2.0 07/31/16 20:11 36.7 85 20 95 2.0 07/31/16 20:06 36.7 85 20 126/77 99 3.0 07/31/16 20:00 Nasal Cannula 3.0 07/31/16 16:57 36.6 76 20 139/82 98 Nasal Cannula 3.0 07/31/16 12:00 Nasal Cannula 3.0 07/31/16 11:20 36.6 77 20 131/77 98 Nasal Cannula 3.0 07/31/16 08:32 36.7 72 20 124/80 98 Nasal Cannula 3.0 Physical Exam General Appearance: no apparent distress Respiratory/Chest: lungs clear, normal breath sounds, no respiratory distress, no accessory muscle use, + pertinent finding (+scar midline chest) Cardiovascular: regular rate, rhythm, no edema, no murmur Abdomen: normal bowel sounds, non tender, soft Extremities: normal inspection, no pedal edema Laboratory Results Last 24 Hours Test 07/31/16 11:51 07/31/16 16:56 07/31/16 20:23 08/01/16 06:52 Bedside Glucose 196 mg/dl 109 mg/dl 118 mg/dl White Blood Count 11.73 K/uL Red Blood Count 2.89 M/uL Hemoglobin 8.7 g/dL Hematocrit 28.2 % Mean Corpuscular Volume 97.6 fL Mean Corpuscular Hemoglobin 30.1 pg Mean Corpuscular Hemoglobin Concent 30.9 g/dl RDW Standard Deviation 58.1 fL RDW Coefficient of Variation 16.5 % Platelet Count 375 K/uL Mean Platelet Volume 9.0 fL Sodium Level 140 mmol/L Potassium Level 4.3 mmol/L Chloride Level 100 mmol/L Carbon Dioxide Level 34 mmol/L Anion Gap 6.0 mmol/L Blood Urea Nitrogen 47 mg/dl Creatinine 2.90 mg/dl Est Creatinine Clear Calc Drug Dose 27.6 ml/min Estimated GFR () 22.4 Estimated GFR (Non- 19.3 BUN/Creatinine Ratio 16.3 Random Glucose 107 mg/dl Calcium Level 9.1 mg/dl Magnesium Level 2.3 mg/dl Test 08/01/16 07:50 Bedside Glucose 123 mg/dl Assessment and Plan This is a 40 year old female with recent CABG x4 at [facility] on 07/16, post- operative atrial fibrillation, ischemic cardiomyopathy and reduced LVEF presents with L sided chest pain Acute Kidney Injury superimposed on CKD stage 3 08/01 appreciate nephrology input patient to be discharged today should get BMP on 08/02 outpatient PCP and cardiology follow-up 07/31 appreciate nephrology input this is likely ATN creatinine down to 2.9 no role for IVFs at this time K, Mg, Phos are all wnl will d/c to [facility] if okay with nephrology today 07/30 creatinine up to > 3.0 diuretics have been held since she presented at [facility] IVFs were given gently (due to her systolic dysfunction) may need more fluid? nephrology consulted for further input 07/29 slight improvement in kidney function 07/28 creatinine on admission here was > 3.0 likely due to diuretics - hold diuretics start diet, and IVFs x 1L Chest Pain in the setting of recent CABG x4 07/30 chest wall tenderness continue aspirin, statin 07/29 PT/OT, plan to ambulate chest wall tenderness continue aspirin, statin, holding diuretics 07/28 bypass done at [facility] on 07/16 recently discharged to [facility] on 07/26 presented to [facility] on 07/27 with chest pain attempted transfer back to tertiary care center - refused by physician this pain seems more like a chest wall tenderness cardiac enzymes are elevated, though expectedly so, due to recent surgery enzymes are trending down echo performed and LVEF improved to around 45-50% will continue aspirin & statin at this time any other input from cardiology appreciated Possible Post-operative Pneumonia 08/01 will need one more dose of Levaquin on 08/02 to complete course 07/30 continue Zosyn for now 07/29 repeat CXR done, possible pneumonia noted will continue Zosyn for now, switch to Levaquin on discharge for a total of 7 days repeat CXR in one month 07/28 CXR - L lung base opacity WBC elevated ~ 14k on admission, down to 12k started on Zosyn + Vanco - due to recent admission MRSA swab negative - stopped Vanco continue Zosyn for now Hypoxia hypoxia on admission; possibly secondary to pneumonia? V/Q scan - low probability for acute PE has been requiring 2L of O2 at [facility] currently back to 2L hold diuretics Anemia 08/02 possible outpatient IV Venofer H/H stable > 8.0 07/29 H/H remains around the 8.0-8.5 range may need to transfuse one unit (recent hx. of CABG) 07/28 H/H ~ 8.0 likely post-operative anemia continue feosol will recheck H/H in 6 hours, if no improvement, will transfuse PRBCs Ischemic Cardiomyopathy Systolic CHF LVEF ~ 45-50%, which is improved from previous echo will stop diuretics at this time due to dehydration - was taking Lasix 80mg + Metolazone may need to decrease dose as outpatient Type 1 Diabetes HA1c = 5.8% well controlled diabetic diet continue Lantus and sliding scale Post-operative Atrial Fibrillation currently on Amiodarone NSR with 1st degree block on EKG Peripheral Neuropathy cont. Lyrica GERD -continue PPI Depression cont. Effexor DVT ppx subq heparin FULL CODE
[2016-08-01 09:42] VITALS: BP 117/75; PULSE 80; TEMP 36.9; O2SAT 92
== END 2016-08-01 10:48 | DRG 205 ==
LOC: ENRESERVTM → ENRESERVDT → C.EDB 10:09 → C.2E 14:36 → C.MS2W 07-31 20:54
PROVIDERS: ADMIT Family Medicine; ATTEND Family Medicine
DX: J95.89 Other postprocedural complications and disorders of respiratory system, not elsewhere classified (principal); N17.0 Acute kidney failure with tubular necrosis; J18.9 Pneumonia, unspecified organism; I13.0 Hypertensive heart and chronic kidney disease with heart failure and stage 1 through stage 4 chronic kidney disease, or unspecified chronic kidney disease; I50.22 Chronic systolic (congestive) heart failure; I25.10 Atherosclerotic heart disease of native coronary artery without angina pectoris; E10.22 Type 1 diabetes mellitus with diabetic chronic kidney disease; D64.9 Anemia, unspecified; R09.02 Hypoxemia; N18.3 Chronic kidney disease, stage 3 (moderate); K21.9 Gastro-esophageal reflux disease without esophagitis; F32.9 Major depressive disorder, single episode, unspecified; I25.5 Ischemic cardiomyopathy; I48.0 Paroxysmal atrial fibrillation; Z95.1 Presence of aortocoronary bypass graft; E10.40 Type 1 diabetes mellitus with diabetic neuropathy, unspecified; E78.5 Hyperlipidemia, unspecified; Z79.82 Long term (current) use of aspirin; Z79.899 Other long term (current) drug therapy; Z79.4 Long term (current) use of insulin; Z83.3 Family history of diabetes mellitus; Z82.49 Family history of ischemic heart disease and other diseases of the circulatory system; Z82.3 Family history of stroke